=== PATIENT | male | born 1950 | race Caucasian/White ===

== ENCOUNTER → 2018-08-16 11:22 | Outpatient (CLI) | payer MEDICARE, OTHER, SELFPAY ==
[2018-08-16 11:44] LABS: Add Manual Diff / Slide Review NO; Basophils Percent Auto 0.6 % (0-2); Hematocrit 47.2 % (41-53); Hemoglobin 16.6 g/dL (13.5-17.5); Lymphocytes Percent Auto 23.2 % (25-40); Mean Corpuscular HGB Conc 35.1 % (30-36); Mean Corpuscular Hemoglobin 35.5 PG (26-34); Mean Corpuscular Volume 101.1 fL (80-100); Monocytes Percent Auto 10.3 % (3-14); Neutrophils Absolute Auto 5300 /uL (3000-5900); Neutrophils Percent Auto 63.9 % (50-75); Platelet Count 136 X10^3/uL (150-400); Red Blood Cell Count 4.67 X10^6/uL (4.5-5.9); Red Cell Distribution Width 14.2 % (11.6-14.8); White Blood Cell Count 8.3 X10^3/uL (4.5-11.0)
[2018-08-16 11:51] LABS: Hemoglobin A1C% w Est Avg Glu 5.4 % (4.0-6.0)
[2018-08-16 12:15] LABS: Alanine Aminotransferase 199 IU/L (21-72); Albumin 4.8 g/dL (3.5-5.0); Albumin Globulin Ratio 1.5 (1.0-2.8); Alkaline Phosphatase 67 U/L (38-126); Aspartate Aminotransferase 180 IU/L (17-59); Bilirubin Total 2.3 mg/dL (0.2-1.3); Blood Urea Nitrogen 12 mg/dL (9-20); Calcium 10.2 mg/dL (8.4-10.2); Carbon Dioxide 31 mmol/L (22-32); Chloride 99 mmol/L (98-107); Estimated Glomerular Filt Rate > 60.0 mL/min (>60); Globulin 3.3 g/dL (1.7-4.1); Glucose 132 mg/dL (80-110); HEMOLYSIS 21 (0-50); Potassium 3.8 mmol/L (3.4-5.1); Sodium 144 mmol/L (137-145); Total Protein 8.1 g/dL (6.3-8.2)
[2018-08-16 12:45] LABS: Thyroid Stimulating Hormone 1.76 uIU/mL (0.47-4.68)
== END ==
PROVIDERS: Family Provider Physician Assistant; PCP Physician Assistant; Visit Provider Family Medicine
DX: E11.9 Type 2 diabetes mellitus without complications (principal); I10 Essential (primary) hypertension; R42 Dizziness and giddiness; R55 Syncope and collapse
CPT/HCPCS: 80053; 81003; 83036; 84443; 85025

== ENCOUNTER → 2018-08-16 17:01 | Outpatient (CLI) | payer MEDICARE, OTHER, SELFPAY ==
[2018-08-16 17:34] LABS: Appearance Urine UA CLEAR; Bilirubin Urine UA NEGATIVE (NEGATIVE); Color Urine UA YELLOW; Glucose Urine UA NEGATIVE (Normal); Ketones Urine UA NEGATIVE (NEGATIVE); Leukocyte Esterase Urine UA NEGATIVE (NEGATIVE); Nitrite Urine UA Negative (Negative); Occult Blood Urine UA TRACE-LYSED (Negative); Protein Urine UA NEGATIVE (Negative); Specific Gravity Urine UA 1.015 (1.000-1.035); Urobilinogen Urine UA 0.2 E.U./dL (0.2)
== END ==
PROVIDERS: Family Medicine; Family Provider Physician Assistant; PCP Physician Assistant; Visit Provider Physician Assistant
DX: E11.9 Type 2 diabetes mellitus without complications (principal); I10 Essential (primary) hypertension; R42 Dizziness and giddiness; R55 Syncope and collapse
CPT/HCPCS: 81003

== ENCOUNTER 2018-08-18 13:17 | Emergency (ER) | payer MEDICARE, OTHER, SELFPAY ==
[2018-08-18 13:27] VITALS: BP 172/82; PULSE 70; RESP 14; O2SAT 97
[2018-08-18 13:32] VITALS: TEMP 36.9
--- NOTE | 2018-08-18 13:52 | ED.DIZZY ---
HPI - Dizziness <Jackelyn WorleyGLORIAP-BC - Last Filed: 08/18/18 17:36> General Chief Complaint: Dizziness Stated Complaint: NEEDS TO BE REHYDRATED Time Seen by Provider: 08/18/18 13:32 Source: patient Mode of arrival: ambulatory Limitations: no limitations History of Present Illness HPI Narrative: Patient presents with chief complaint of dizziness when he bends over. Described as lightheadedness. Patient denies spinning. Patient was seen by primary care provider on the for the same problem. Patient states primary care provider sent him to the emergency department to be rehydrated and have his electrolytes rebalanced. patient denies any your eye symptoms. Denies any ear pain or sore throat. Denies any congestion or coughing. Patient denies any shortness of breath, chest pain, abdominal pain. He denies any nausea vomiting or diarrhea. Patient states he has been drinking liters of Gatorade in an attempt to be rehydrated. States that he decreased his wine intake from 10 glasses a day down to approximately 2 glasses a day. Patient does state he has a history of heart failure from being dehydrated and chart review illustrate alcohol-related heart failure Chart review illustrate that his electrolytes that were done on the are grossly within normal limits. Patient was also noted to have taken himself off his blood pressure medications and other medications.. Patient states that his lightheadedness sensation is not spinning it only happens when he leans forward. Related Data Home Medications Medication Instructions Recorded Confirmed magnesium oxide 500 mg PO QDAY #0 11/28/16 03/27/18 [IBUPROFEN ] 400 mg PO PRN PRN #0 01/17/17 03/27/18 [LOPERAMIDE HCL] 2 - 4 mg PO PRN PRN #0 01/17/17 03/27/18 meclizine 25 mg PO PRN PRN #0 01/31/17 03/27/18 indomethacin 50 mg capsule 50 mg PO BID 03/27/18 03/27/18 Previous Rx's Medication Instructions Recorded albuterol sulfate [Ventolin HFA] 2 puff INH Q4-6HP PRN #1 ea 11/28/16 Glucose: Home Monitoring Kit kit #1 01/31/17 Glucose: Test Strips str QDAY #100 01/07/18 levothyroxine [Synthroid] 75 mcg PO QDAY #90 tab 01/07/18 metformin [Glucophage XR] 500 mg PO QDAY #90 tab 01/07/18 Lancets #1 ea 04/03/18 hydrochlorothiazide 25 mg tablet 25 mg PO QDAY #90 tab 04/10/18 metoprolol tartrate 50 mg tablet 25 - 50 mg PO BID #135 tab 04/10/18 acyclovir 400 mg PO BID #20 tab 05/27/18 Allergies Allergy/AdvReac Type Severity Reaction Status Date / Time acetaminophen [ACETAMINOPHEN] AdvReac Severe Has Verified 08/16/18 10:42 Elevated LFTs due ETOH Review of Systems <CELE PinedaUNIVERSITY OF [facility] - Last Filed: 08/18/18 17:36> Review of Systems GENERAL: Denies chills, fatigue, malaise, fever, sweats. HEENT: Denies sinus pain, ear pain, sore throat, difficulty swallowing, dizziness. RESPIRATORY: Denies dyspnea, cough, wheezing, hemoptysis, sputum. CARDIOVASCULAR: Denies chest pain, palpitations, orthopnea, edema, GASTROINTESTINAL: Denies nausea, vomiting, abdominal pain, diarrhea, constipation, melena. : Denies dysuria, frequency, incontinence, hematuria, urinary retention. MUSCULOSKELETAL: denies weakness, joint pain, or bony pain SKIN: Denies rash, skin lesions, or other NEUROLOGIC: See HPI PSYCHIATRIC: No concerning psychosocial issues. 12 point review of systems is negative except for those stated above Exam <GLORIA PinedaARBOR HEALTH - Last Filed: 08/18/18 17:36> Narrative Exam Narrative: GENERAL: This is a well-nourished, well-developed patient, in no acute distress. HEAD: Atraumatic. Normocephalic. No temporal or scalp tenderness. EYES: Pupils equal round and reactive. Extraocular motions intact. No scleral icterus. No injection or drainage. ENT: Nose without bleeding, purulent drainage or septal hematoma. Throat without erythema, tonsillar hypertrophy or exudate. Uvula midline. Airway patent. NECK: Trachea midline. No JVD or lymphadenopathy. Supple, nontender, no meningeal signs. CARDIOVASCULAR: Regular rate and rhythm without murmurs, gallops, or rubs. RESPIRATORY: Clear to auscultation. Breath sounds equal bilaterally. No wheezes, rales, or rhonchi. No increased respiratory effort. No retractions. No accessory muscle use. No cough on exam. GASTROINTESTINAL: Abdomen soft, non-tender, nondistended. No hepato-splenomegaly, or palpable masses. No guarding. EXTREMITIES: No clubbing, cyanosis, or edema. No joint tenderness, effusion, or edema noted. BACK: Nontender without deformity or crepitance. No flank tenderness. NEURO: AOx3. No slurred speech. Stable gait. Pupils equal round and reactive. strength is equal upper and lower extremities bilaterally. SKIN: No rash or erythema. Initial Vital Signs Initial Vital Signs: Vital Signs Pulse Rate 70 08/18/18 13:27 Respiratory Rate 14 08/18/18 13:27 Blood Pressure 172/82 H 08/18/18 13:27 Pulse Oximetry 97 08/18/18 13:27 <Nicole Flanagan DO - Last Filed: 08/19/18 07:55> Initial Vital Signs Initial Vital Signs: Vital Signs Pulse Rate 70 08/18/18 13:27 Respiratory Rate 14 08/18/18 13:27 Blood Pressure 172/82 H 08/18/18 13:27 Pulse Oximetry 97 08/18/18 13:27 Course <CELE Pineda-BC - Last Filed: 08/18/18 17:36> Additional Information: I checked on the patient several times throughout His stay in the emergency department. Orders Ordered: Discontinued Medications Sodium Chloride (Normal Saline 0.9%) 1,000 mls @ 1,000 mls/hr IV BOLUS ONE Stop: 08/18/18 14:53 Last Infusion: 08/18/18 16:00 Dose: 0 mls/hr Admin: 08/18/18 14:20 Dose: 1,000 mls/hr Vital Signs - 8 hr 08/18/18 13:27 08/18/18 13:32 08/18/18 14:41 Temperature 98.4 F Pulse Rate 70 54 L Pulse Rate [Orthostatic Lying] Pulse Rate [Orthostatic Sitting] Pulse Rate [Orthostatic Standing] Respiratory Rate 14 15 Blood Pressure 172/82 H Blood Pressure [Orthostatic Lying] Blood Pressure [Orthostatic Sitting] Blood Pressure [Orthostatic Standing] Blood Pressure [Right Arm] 128/58 L Pulse Oximetry 97 99 08/18/18 15:32 08/18/18 16:48 Temperature Pulse Rate 61 Pulse Rate [Orthostatic Lying] 70 Pulse Rate [Orthostatic Sitting] 74 Pulse Rate [Orthostatic Standing] 74 Respiratory Rate 15 Blood Pressure Blood Pressure [Orthostatic Lying] 155/76 H Blood Pressure [Orthostatic Sitting] 151/68 H Blood Pressure [Orthostatic Standing] 158/76 H Blood Pressure [Right Arm] 132/61 Pulse Oximetry 100 <Nicole Flanagan DO - Last Filed: 08/19/18 07:55> Orders Ordered: Discontinued Medications Sodium Chloride (Normal Saline 0.9%) 1,000 mls @ 1,000 mls/hr IV BOLUS ONE Stop: 08/18/18 14:53 Last Infusion: 08/18/18 16:00 Dose: 0 mls/hr Admin: 08/18/18 14:20 Dose: 1,000 mls/hr Vital Signs - 8 hr 08/18/18 13:27 08/18/18 13:32 08/18/18 14:41 Temperature 98.4 F Pulse Rate 70 54 L Pulse Rate [Orthostatic Lying] Pulse Rate [Orthostatic Sitting] Pulse Rate [Orthostatic Standing] Respiratory Rate 14 15 Blood Pressure 172/82 H Blood Pressure [Orthostatic Lying] Blood Pressure [Orthostatic Sitting] Blood Pressure [Orthostatic Standing] Blood Pressure [Right Arm] 128/58 L Pulse Oximetry 97 99 08/18/18 15:32 08/18/18 16:48 Temperature Pulse Rate 61 Pulse Rate [Orthostatic Lying] 70 Pulse Rate [Orthostatic Sitting] 74 Pulse Rate [Orthostatic Standing] 74 Respiratory Rate 15 Blood Pressure Blood Pressure [Orthostatic Lying] 155/76 H Blood Pressure [Orthostatic Sitting] 151/68 H Blood Pressure [Orthostatic Standing] 158/76 H Blood Pressure [Right Arm] 132/61 Pulse Oximetry 100 MDM - Dizziness <CELE Pineda- - Last Filed: 08/18/18 17:36> Lab Data Result diagrams: 08/18/18 14:10 08/18/18 14:10 Lab Results 08/18/18 08/18/18 08/18/18 Range/Units 14:10 14:10 14:10 WBC 7.8 (4.5-11.0) X10^3/uL RBC 4.54 (4.5-5.9) X10^6/uL Hgb 16.3 (13.5-17.5) g/dL Hct 46.7 (41-53) % MCV 102.8 H (80-100) fL MCH 36.0 H (26-34) PG MCHC 35.0 (30-36) % RDW 14.3 (11.6-14.8) % Plt Count 140 L (150-400) X10^3/uL Neut % (Auto) 61.7 (50-75) % Lymph % (Auto) 26.3 (25-40) % [place] % (Auto) 10.2 (3-14) % Eos % (Auto) 1.6 L (2-4) % Baso % (Auto) 0.2 (0-2) % Neut # (Auto) 4800 (3614-8253) /uL Sodium 142 (137-145) mmol/L Potassium 3.9 (3.4-5.1) mmol/L Chloride 100 (98-107) mmol/L Carbon Dioxide 31 (22-32) mmol/L BUN 12 (9-20) mg/dL Creatinine 0.60 L (0.66-1.25) mg/dL Estimated GFR > 60.0 (>60) mL/min BUN/Creatinine Ratio 20.0 (6-22) Glucose 111 H (80-110) mg/dL Calcium 9.8 (8.4-10.2) mg/dL Magnesium 1.6 (1.6-2.3) mg/dL Total Bilirubin 1.7 H (0.2-1.3) mg/dL AST 135 H (17-59) IU/L ALT 167 H (21-72) IU/L Alkaline Phosphatase 66 (38-126) U/L Total Creatine Kinase 54 L (55-170) U/L CK-MB (CK-2) TNP CK-MB (CK-2) Rel Index TNP Troponin I < 0.012 (0.01-0.034) ng/mL Total Protein 7.8 (6.3-8.2) g/dL Albumin 4.5 (3.5-5.0) g/dL Globulin 3.3 (1.7-4.1) g/dL Albumin/Globulin Ratio 1.4 (1.0-2.8) Urine Color Urine Appearance Urine pH (4.5-8.0) Ur Specific [employer] (1.000-1.035) Urine Protein (Negative) Urine Glucose (UA) (Normal) g/dL Urine Ketones (NEGATIVE) Urine Occult Blood (Negative) Urine Nitrate (Negative) Urine Bilirubin (NEGATIVE) Urine Urobilinogen (0.2) E.U./dL Ur Leukocyte Esterase (NEGATIVE) Urine RBC (0-5/HPF) Urine WBC (0-5/HPF) Urine Bacteria (None) Ur Culture Indicated? Micro UA Comment 08/18/18 Range/Units 16:25 WBC (4.5-11.0) X10^3/uL RBC (4.5-5.9) X10^6/uL Hgb (13.5-17.5) g/dL Hct (41-53) % MCV (80-100) fL MCH (26-34) PG MCHC (30-36) % RDW (11.6-14.8) % Plt Count (150-400) X10^3/uL Neut % (Auto) (50-75) % Lymph % (Auto) (25-40) % [place] % (Auto) (3-14) % Eos % (Auto) (2-4) % Baso % (Auto) (0-2) % Neut # (Auto) (5724-6191) /uL Sodium (137-145) mmol/L Potassium (3.4-5.1) mmol/L Chloride (98-107) mmol/L Carbon Dioxide (22-32) mmol/L BUN (9-20) mg/dL Creatinine (0.66-1.25) mg/dL Estimated GFR (>60) mL/min BUN/Creatinine Ratio (6-22) Glucose (80-110) mg/dL Calcium (8.4-10.2) mg/dL Magnesium (1.6-2.3) mg/dL Total Bilirubin (0.2-1.3) mg/dL AST (17-59) IU/L ALT (21-72) IU/L Alkaline Phosphatase (38-126) U/L Total Creatine Kinase (55-170) U/L CK-MB (CK-2) CK-MB (CK-2) Rel Index Troponin I (0.01-0.034) ng/mL Total Protein (6.3-8.2) g/dL Albumin (3.5-5.0) g/dL Globulin (1.7-4.1) g/dL Albumin/Globulin Ratio (1.0-2.8) Urine Color Yellow Urine Appearance Clear Urine pH 6.5 (4.5-8.0) Ur Specific [employer] <=1.005 (1.000-1.035) Urine Protein Negative (Negative) Urine Glucose (UA) Negative (Normal) g/dL Urine Ketones Negative (NEGATIVE) Urine Occult Blood Negative (Negative) Urine Nitrate Negative (Negative) Urine Bilirubin Negative (NEGATIVE) Urine Urobilinogen 0.2 (0.2) E.U./dL Ur Leukocyte Esterase Negative (NEGATIVE) Urine RBC None seen (0-5/HPF) Urine WBC None seen (0-5/HPF) Urine Bacteria None seen (None) Ur Culture Indicated? Cult not indicated Micro UA Comment Microscopic normal Imaging Data CT scan - head: Radiologist's impression: [address] [address] [address] Scan Report Signed Patient: Shaun Ceja R#: [id number] : 1950Acct:[id number] Age/Sex: 67 / MDate of Service: 08/18/18 Loc: ED Accession Number: [id number] Procedure: CT head/brain wo con Ordering Provider: Jackelyn Worley PROCEDURE: CT HEAD/BRAIN WO CON INDICATIONS: lightheadedness TECHNIQUE: Noncontrast 4.5 mm thick angled axial sections acquired from the foramen magnum to the vertex, with coronal and sagittal reformats. For radiation dose reduction, the following was used: automated exposure control, adjustment of mA and/or kV according to patient size. COMPARISON: None. FINDINGS: Image quality: Excellent. CSF spaces: Basal cisterns are patent. No extra-axial fluid collections. The ventricles are symmetric in size and shape. Brain: No intracranial bleeds or masses. There is cerebral volume loss for age, with resultant ventricular and sulcal prominence. There are periventricular and deep white matter chronic small vessel ischemic changes. There is intracranial internal carotid artery atherosclerosis. Skull and face: Calvarium and visualized facial bones appear intact, without suspicious lesions. Sinuses: Visualized sinuses and mastoids are clear. IMPRESSION: 1. No acute intracranial process. 2. Mild atrophy and chronic microvascular ischemic changes. Dictated by: Serenity Hernández M.D. on 08/18/2018 at 15:07 Approved by: Serenity Hernández M.D. on 08/18/2018 at 15:07 ECG Data Attestation: I personally reviewed and interpreted this ECG as follows: Interpretation: Sinus rhythm. Ventricular rate 60. No ectopy noted. No ST elevation or depression. MDM Narrative Medical decision making narrative: Patient presented for chief complaint of lightheadedness when leaning forward. He had just seen his primary care provider for this on August 16 and it is unclear why he came to the emergency department today other than lack of improvement. The patient insisted that his electrolytes were off, though his lab work came back grossly benign. He was given 1 L of IVF in the emergency department and had normal orthostatic vital signs. A CBC, CMP and cardiac enzymes were completed. He had a negative head CT. His EKG sinus rhythm. The patient ambulated steadily to check out. I encouraged him to follow up with primary care provider especially given how much he states he has decreased his alcohol consumption. Discussed return precautions For acute concerns including heart attack or stroke and patient had no questions or concerns upon discharge. <Nicole Flanagan, DO - Last Filed: 08/19/18 07:55> Lab Data Lab Results 08/18/18 08/18/18 08/18/18 Range/Units 14:10 14:10 14:10 WBC 7.8 (4.5-11.0) X10^3/uL RBC 4.54 (4.5-5.9) X10^6/uL Hgb 16.3 (13.5-17.5) g/dL Hct 46.7 (41-53) % MCV 102.8 H (80-100) fL MCH 36.0 H (26-34) PG MCHC 35.0 (30-36) % RDW 14.3 (11.6-14.8) % Plt Count 140 L (150-400) X10^3/uL Neut % (Auto) 61.7 (50-75) % Lymph % (Auto) 26.3 (25-40) % [place] % (Auto) 10.2 (3-14) % Eos % (Auto) 1.6 L (2-4) % Baso % (Auto) 0.2 (0-2) % Neut # (Auto) 4800 (4183-7542) /uL Sodium 142 (137-145) mmol/L Potassium 3.9 (3.4-5.1) mmol/L Chloride 100 (98-107) mmol/L Carbon Dioxide 31 (22-32) mmol/L BUN 12 (9-20) mg/dL Creatinine 0.60 L (0.66-1.25) mg/dL Estimated GFR > 60.0 (>60) mL/min BUN/Creatinine Ratio 20.0 (6-22) Glucose 111 H (80-110) mg/dL Calcium 9.8 (8.4-10.2) mg/dL Magnesium 1.6 (1.6-2.3) mg/dL Total Bilirubin 1.7 H (0.2-1.3) mg/dL AST 135 H (17-59) IU/L ALT 167 H (21-72) IU/L Alkaline Phosphatase 66 (38-126) U/L Total Creatine Kinase 54 L (55-170) U/L CK-MB (CK-2) TNP CK-MB (CK-2) Rel Index TNP Troponin I < 0.012 (0.01-0.034) ng/mL Total Protein 7.8 (6.3-8.2) g/dL Albumin 4.5 (3.5-5.0) g/dL Globulin 3.3 (1.7-4.1) g/dL Albumin/Globulin Ratio 1.4 (1.0-2.8) Urine Color Urine Appearance Urine pH (4.5-8.0) Ur Specific [employer] (1.000-1.035) Urine Protein (Negative) Urine Glucose (UA) (Normal) g/dL Urine Ketones (NEGATIVE) Urine Occult Blood (Negative) Urine Nitrate (Negative) Urine Bilirubin (NEGATIVE) Urine Urobilinogen (0.2) E.U./dL Ur Leukocyte Esterase (NEGATIVE) Urine RBC (0-5/HPF) Urine WBC (0-5/HPF) Urine Bacteria (None) Ur Culture Indicated? Micro UA Comment 08/18/18 Range/Units 16:25 WBC (4.5-11.0) X10^3/uL RBC (4.5-5.9) X10^6/uL Hgb (13.5-17.5) g/dL Hct (41-53) % MCV (80-100) fL MCH (26-34) PG MCHC (30-36) % RDW (11.6-14.8) % Plt Count (150-400) X10^3/uL Neut % (Auto) (50-75) % Lymph % (Auto) (25-40) % [place] % (Auto) (3-14) % Eos % (Auto) (2-4) % Baso % (Auto) (0-2) % Neut # (Auto) (0756-6509) /uL Sodium (137-145) mmol/L Potassium (3.4-5.1) mmol/L Chloride (98-107) mmol/L Carbon Dioxide (22-32) mmol/L BUN (9-20) mg/dL Creatinine (0.66-1.25) mg/dL Estimated GFR (>60) mL/min BUN/Creatinine Ratio (6-22) Glucose (80-110) mg/dL Calcium (8.4-10.2) mg/dL Magnesium (1.6-2.3) mg/dL Total Bilirubin (0.2-1.3) mg/dL AST (17-59) IU/L ALT (21-72) IU/L Alkaline Phosphatase (38-126) U/L Total Creatine Kinase (55-170) U/L CK-MB (CK-2) CK-MB (CK-2) Rel Index Troponin I (0.01-0.034) ng/mL Total Protein (6.3-8.2) g/dL Albumin (3.5-5.0) g/dL Globulin (1.7-4.1) g/dL Albumin/Globulin Ratio (1.0-2.8) Urine Color Yellow Urine Appearance Clear Urine pH 6.5 (4.5-8.0) Ur Specific [employer] <=1.005 (1.000-1.035) Urine Protein Negative (Negative) Urine Glucose (UA) Negative (Normal) g/dL Urine Ketones Negative (NEGATIVE) Urine Occult Blood Negative (Negative) Urine Nitrate Negative (Negative) Urine Bilirubin Negative (NEGATIVE) Urine Urobilinogen 0.2 (0.2) E.U./dL Ur Leukocyte Esterase Negative (NEGATIVE) Urine RBC None seen (0-5/HPF) Urine WBC None seen (0-5/HPF) Urine Bacteria None seen (None) Ur Culture Indicated? Cult not indicated Micro UA Comment Microscopic normal Discharge Plan Departure Patient Disposition: Home Clinical Impression: Light-headed feeling, Elevated liver enzymes, Alcohol abuse Discharge Date/Time: 08/18/18 17:39 Interventions: ED Discharge Assessment Last Done: 08/18/18 17:37 Instructions: DI for Alcohol Abuse, DI for Dizziness-Nonvertigo Activity Restrictions/Additional Instructions: Your lab work came back normal today. Your vital signs have been stable throughout her stay in the emergency department. Your urine came back normal and your EKG and head CT were normal as well. Please push fluids and follow up with primary care provider. Please come back to emergency department for any acute concerns of stroke heart attack or urgent matters. Prescriptions: No Action indomethacin 50 mg capsule 50 mg PO BID RF: 0 magnesium oxide 500 MG tablet 500 mg PO QDAY Qty: 0 RF: 0 albuterol sulfate [Ventolin HFA] 90 MCG/PUFF HFA aerosol inhaler 2 puff INH Q4-6HP PRNQty: 1 RF: 0 [LOPERAMIDE HCL] 2 - 4 mg PO PRN PRNQty: 0 RF: 0 [IBUPROFEN ] 400 mg PO PRN PRNQty: 0 RF: 0 meclizine 25 MG tablet 25 mg PO PRN PRNQty: 0 RF: 0 Glucose: Home Monitoring Kit Qty: 1 RF: 0 levothyroxine [Synthroid] 75 MCG tablet 75 mcg PO QDAY Qty: 90 RF: 3 metformin [Glucophage XR] 500 MG tablet extended release 24 hr 500 mg PO QDAY Qty: 90 RF: 3 Glucose: Test Strips QDAY Qty: 100 RF: 6 Lancets .Route .MEDSUPPLY Qty: 1 RF: 3 metoprolol tartrate 50 mg tablet 25 - 50 mg PO BID Qty: 135 RF: 0 hydrochlorothiazide 25 mg tablet 25 mg PO QDAY Qty: 90 RF: 0 acyclovir 400 mg tablet 400 mg PO BID Qty: 20 RF: 6 Referrals: Valerie Shi PA-C [Primary Care Provider] - <Nicole Flanagan DO - Last Filed: 08/19/18 07:55> [facility] Attestation: I was immediately available in the department for consultation. Documentation has been reviewed. I agree with assessment and plan.
--- NOTE | 2018-08-18 14:15 | ED_ITS ---
HPI - Dizziness <Jackelyn WorleyGLORIAP-BC - Last Filed: 08/18/18 17:36> General Chief Complaint: Dizziness Stated Complaint: NEEDS TO BE REHYDRATED Time Seen by Provider: 08/18/18 13:32 Source: patient Mode of arrival: ambulatory Limitations: no limitations History of Present Illness HPI Narrative: Patient presents with chief complaint of dizziness when he bends over. Described as lightheadedness. Patient denies spinning. Patient was seen by primary care provider on the for the same problem. Patient states primary care provider sent him to the emergency department to be rehydrated and have his electrolytes rebalanced. patient denies any your eye symptoms. Denies any ear pain or sore throat. Denies any congestion or coughing. Patient denies any shortness of breath, chest pain, abdominal pain. He denies any nausea vomiting or diarrhea. Patient states he has been drinking liters of Gatorade in an attempt to be rehydrated. States that he decreased his wine intake from 10 glasses a day down to approximately 2 glasses a day. Patient does state he has a history of heart failure from being dehydrated and chart review illustrate alcohol-related heart failure Chart review illustrate that his electrolytes that were done on the are grossly within normal limits. Patient was also noted to have taken himself off his blood pressure medications and other medications.. Patient states that his lightheadedness sensation is not spinning it only happens when he leans forward. Related Data Home Medications Medication Instructions Recorded Confirmed magnesium oxide 500 mg PO QDAY #0 11/28/16 03/27/18 [IBUPROFEN ] 400 mg PO PRN PRN #0 01/17/17 03/27/18 [LOPERAMIDE HCL] 2 - 4 mg PO PRN PRN #0 01/17/17 03/27/18 meclizine 25 mg PO PRN PRN #0 01/31/17 03/27/18 indomethacin 50 mg capsule 50 mg PO BID 03/27/18 03/27/18 Previous Rx's Medication Instructions Recorded albuterol sulfate [Ventolin HFA] 2 puff INH Q4-6HP PRN #1 ea 11/28/16 Glucose: Home Monitoring Kit kit #1 01/31/17 Glucose: Test Strips str QDAY #100 01/07/18 levothyroxine [Synthroid] 75 mcg PO QDAY #90 tab 01/07/18 metformin [Glucophage XR] 500 mg PO QDAY #90 tab 01/07/18 Lancets #1 ea 04/03/18 hydrochlorothiazide 25 mg tablet 25 mg PO QDAY #90 tab 04/10/18 metoprolol tartrate 50 mg tablet 25 - 50 mg PO BID #135 tab 04/10/18 acyclovir 400 mg PO BID #20 tab 05/27/18 Allergies Allergy/AdvReac Type Severity Reaction Status Date / Time acetaminophen [ACETAMINOPHEN] AdvReac Severe Has Verified 08/16/18 10:42 Elevated LFTs due ETOH Review of Systems <CELE PinedaW. D. [facility] - Last Filed: 08/18/18 17:36> Review of Systems GENERAL: Denies chills, fatigue, malaise, fever, sweats. HEENT: Denies sinus pain, ear pain, sore throat, difficulty swallowing, dizziness. RESPIRATORY: Denies dyspnea, cough, wheezing, hemoptysis, sputum. CARDIOVASCULAR: Denies chest pain, palpitations, orthopnea, edema, GASTROINTESTINAL: Denies nausea, vomiting, abdominal pain, diarrhea, constipation, melena. : Denies dysuria, frequency, incontinence, hematuria, urinary retention. MUSCULOSKELETAL: denies weakness, joint pain, or bony pain SKIN: Denies rash, skin lesions, or other NEUROLOGIC: See HPI PSYCHIATRIC: No concerning psychosocial issues. 12 point review of systems is negative except for those stated above Exam <GL[facility]PROVID[facility] - Last Filed: 08/18/18 17:36> Narrative Exam Narrative: GENERAL: This is a well-nourished, well-developed patient, in no acute distress. HEAD: Atraumatic. Normocephalic. No temporal or scalp tenderness. EYES: Pupils equal round and reactive. Extraocular motions intact. No scleral icterus. No injection or drainage. ENT: Nose without bleeding, purulent drainage or septal hematoma. Throat without erythema, tonsillar hypertrophy or exudate. Uvula midline. Airway patent. NECK: Trachea midline. No JVD or lymphadenopathy. Supple, nontender, no meningeal signs. CARDIOVASCULAR: Regular rate and rhythm without murmurs, gallops, or rubs. RESPIRATORY: Clear to auscultation. Breath sounds equal bilaterally. No wheezes , rales, or rhonchi. No increased respiratory effort. No retractions. No accessory muscle use. No cough on exam. GASTROINTESTINAL: Abdomen soft, non-tender, nondistended. No hepato-splenomegaly , or palpable masses. No guarding. EXTREMITIES: No clubbing, cyanosis, or edema. No joint tenderness, effusion, or edema noted. BACK: Nontender without deformity or crepitance. No flank tenderness. NEURO: AOx3. No slurred speech. Stable gait. Pupils equal round and reactive. strength is equal upper and lower extremities bilaterally. SKIN: No rash or erythema. Initial Vital Signs Initial Vital Signs: Vital Signs Pulse Rate 70 08/18/18 13:27 Respiratory Rate 14 08/18/18 13:27 Blood Pressure 172/82 H 08/18/18 13:27 Pulse Oximetry 97 08/18/18 13:27 <Nicole Flanagan DO - Last Filed: 08/19/18 07:55> Initial Vital Signs Initial Vital Signs: Vital Signs Pulse Rate 70 08/18/18 13:27 Respiratory Rate 14 08/18/18 13:27 Blood Pressure 172/82 H 08/18/18 13:27 Pulse Oximetry 97 08/18/18 13:27 Course <CELE Pineda-BC - Last Filed: 08/18/18 17:36> Additional Information: I checked on the patient several times throughout His stay in the emergency department. Orders Ordered: Discontinued Medications Sodium Chloride (Normal Saline 0.9%) 1,000 mls @ 1,000 mls/hr IV BOLUS ONE Stop: 08/18/18 14:53 Last Infusion: 08/18/18 16:00 Dose: 0 mls/hr Admin: 08/18/18 14:20 Dose: 1,000 mls/hr Vital Signs - 8 hr 08/18/18 13:27 08/18/18 13:32 08/18/18 14:41 Temperature 98.4 F Pulse Rate 70 54 L Pulse Rate [Orthostatic Lying] Pulse Rate [Orthostatic Sitting] Pulse Rate [Orthostatic Standing] Respiratory Rate 14 15 Blood Pressure 172/82 H Blood Pressure [Orthostatic Lying] Blood Pressure [Orthostatic Sitting] Blood Pressure [Orthostatic Standing] Blood Pressure [Right Arm] 128/58 L Pulse Oximetry 97 99 08/18/18 15:32 08/18/18 16:48 Temperature Pulse Rate 61 Pulse Rate [Orthostatic Lying] 70 Pulse Rate [Orthostatic Sitting] 74 Pulse Rate [Orthostatic Standing] 74 Respiratory Rate 15 Blood Pressure Blood Pressure [Orthostatic Lying] 155/76 H Blood Pressure [Orthostatic Sitting] 151/68 H Blood Pressure [Orthostatic Standing] 158/76 H Blood Pressure [Right Arm] 132/61 Pulse Oximetry 100 <Nicole Flanagan DO - Last Filed: 08/19/18 07:55> Orders Ordered: Discontinued Medications Sodium Chloride (Normal Saline 0.9%) 1,000 mls @ 1,000 mls/hr IV BOLUS ONE Stop: 08/18/18 14:53 Last Infusion: 08/18/18 16:00 Dose: 0 mls/hr Admin: 08/18/18 14:20 Dose: 1,000 mls/hr Vital Signs - 8 hr 08/18/18 13:27 08/18/18 13:32 08/18/18 14:41 Temperature 98.4 F Pulse Rate 70 54 L Pulse Rate [Orthostatic Lying] Pulse Rate [Orthostatic Sitting] Pulse Rate [Orthostatic Standing] Respiratory Rate 14 15 Blood Pressure 172/82 H Blood Pressure [Orthostatic Lying] Blood Pressure [Orthostatic Sitting] Blood Pressure [Orthostatic Standing] Blood Pressure [Right Arm] 128/58 L Pulse Oximetry 97 99 08/18/18 15:32 08/18/18 16:48 Temperature Pulse Rate 61 Pulse Rate [Orthostatic Lying] 70 Pulse Rate [Orthostatic Sitting] 74 Pulse Rate [Orthostatic Standing] 74 Respiratory Rate 15 Blood Pressure Blood Pressure [Orthostatic Lying] 155/76 H Blood Pressure [Orthostatic Sitting] 151/68 H Blood Pressure [Orthostatic Standing] 158/76 H Blood Pressure [Right Arm] 132/61 Pulse Oximetry 100 MDM - Dizziness <CELE Pineda- - Last Filed: 08/18/18 17:36> Lab Data Result diagrams: 08/18/18 14:10 08/18/18 14:10 Lab Results 08/18/18 08/18/18 08/18/18 Range/Units 14:10 14:10 14:10 WBC 7.8 (4.5-11.0) X10^3/uL RBC 4.54 (4.5-5.9) X10^6/uL Hgb 16.3 (13.5-17.5) g/dL Hct 46.7 (41-53) % MCV 102.8 H (80-100) fL MCH 36.0 H (26-34) PG MCHC 35.0 (30-36) % RDW 14.3 (11.6-14.8) % Plt Count 140 L (150-400) X10^3/uL Neut % (Auto) 61.7 (50-75) % Lymph % (Auto) 26.3 (25-40) % Glenn % (Auto) 10.2 (3-14) % Eos % (Auto) 1.6 L (2-4) % Baso % (Auto) 0.2 (0-2) % Neut # (Auto) 4800 (8167-9361) /uL Sodium 142 (137-145) mmol/L Potassium 3.9 (3.4-5.1) mmol/L Chloride 100 (98-107) mmol/L Carbon Dioxide 31 (22-32) mmol/L BUN 12 (9-20) mg/dL Creatinine 0.60 L (0.66-1.25) mg/dL Estimated GFR > 60.0 (>60) mL/min BUN/Creatinine Ratio 20.0 (6-22) Glucose 111 H (80-110) mg/dL Calcium 9.8 (8.4-10.2) mg/dL Magnesium 1.6 (1.6-2.3) mg/dL Total Bilirubin 1.7 H (0.2-1.3) mg/dL AST 135 H (17-59) IU/L ALT 167 H (21-72) IU/L Alkaline Phosphatase 66 (38-126) U/L Total Creatine Kinase 54 L (55-170) U/L CK-MB (CK-2) TNP CK-MB (CK-2) Rel Index TNP Troponin I < 0.012 (0.01-0.034) ng/mL Total Protein 7.8 (6.3-8.2) g/dL Albumin 4.5 (3.5-5.0) g/dL Globulin 3.3 (1.7-4.1) g/dL Albumin/Globulin Ratio 1.4 (1.0-2.8) Urine Color Urine Appearance Urine pH (4.5-8.0) Ur Specific Beebe (1.000-1.035) Urine Protein (Negative) Urine Glucose (UA) (Normal) g/dL Urine Ketones (NEGATIVE) Urine Occult Blood (Negative) Urine Nitrate (Negative) Urine Bilirubin (NEGATIVE) Urine Urobilinogen (0.2) E.U./dL Ur Leukocyte Esterase (NEGATIVE) Urine RBC (0-5/HPF) Urine WBC (0-5/HPF) Urine Bacteria (None) Ur Culture Indicated? Micro UA Comment 08/18/18 Range/Units 16:25 WBC (4.5-11.0) X10^3/uL RBC (4.5-5.9) X10^6/uL Hgb (13.5-17.5) g/dL Hct (41-53) % MCV (80-100) fL MCH (26-34) PG MCHC (30-36) % RDW (11.6-14.8) % Plt Count (150-400) X10^3/uL Neut % (Auto) (50-75) % Lymph % (Auto) (25-40) % Glenn % (Auto) (3-14) % Eos % (Auto) (2-4) % Baso % (Auto) (0-2) % Neut # (Auto) (7270-2875) /uL Sodium (137-145) mmol/L Potassium (3.4-5.1) mmol/L Chloride (98-107) mmol/L Carbon Dioxide (22-32) mmol/L BUN (9-20) mg/dL Creatinine (0.66-1.25) mg/dL Estimated GFR (>60) mL/min BUN/Creatinine Ratio (6-22) Glucose (80-110) mg/dL Calcium (8.4-10.2) mg/dL Magnesium (1.6-2.3) mg/dL Total Bilirubin (0.2-1.3) mg/dL AST (17-59) IU/L ALT (21-72) IU/L Alkaline Phosphatase (38-126) U/L Total Creatine Kinase (55-170) U/L CK-MB (CK-2) CK-MB (CK-2) Rel Index Troponin I (0.01-0.034) ng/mL Total Protein (6.3-8.2) g/dL Albumin (3.5-5.0) g/dL Globulin (1.7-4.1) g/dL Albumin/Globulin Ratio (1.0-2.8) Urine Color Yellow Urine Appearance Clear Urine pH 6.5 (4.5-8.0) Ur Specific Beebe <=1.005 (1.000-1.035) Urine Protein Negative (Negative) Urine Glucose (UA) Negative (Normal) g/dL Urine Ketones Negative (NEGATIVE) Urine Occult Blood Negative (Negative) Urine Nitrate Negative (Negative) Urine Bilirubin Negative (NEGATIVE) Urine Urobilinogen 0.2 (0.2) E.U./dL Ur Leukocyte Esterase Negative (NEGATIVE) Urine RBC None seen (0-5/HPF) Urine WBC None seen (0-5/HPF) Urine Bacteria None seen (None) Ur Culture Indicated? Cult not indicated Micro UA Comment Microscopic normal Imaging Data CT scan - head: Radiologist's impression: [address] [address] [address] Scan Report Signed Patient: Shaun Ceja R#: [id number] : 1950Acct:[id number] Age/Sex: 67 / MDate of Service: 08/18/18 Loc: ED Accession Number: [id number] Procedure: CT head/brain wo con Ordering Provider: Jackelyn Worley PROCEDURE: CT HEAD/BRAIN WO CON INDICATIONS: lightheadedness TECHNIQUE: Noncontrast 4.5 mm thick angled axial sections acquired from the foramen magnum to the vertex, with coronal and sagittal reformats. For radiation dose reduction, the following was used: automated exposure control, adjustment of mA and/or kV according to patient size. COMPARISON: None. FINDINGS: Image quality: Excellent. CSF spaces: Basal cisterns are patent. No extra-axial fluid collections. The ventricles are symmetric in size and shape. Brain: No intracranial bleeds or masses. There is cerebral volume loss for age , with resultant ventricular and sulcal prominence. There are periventricular and deep white matter chronic small vessel ischemic changes. There is intracranial internal carotid artery atherosclerosis. Skull and face: Calvarium and visualized facial bones appear intact, without suspicious lesions. Sinuses: Visualized sinuses and mastoids are clear. IMPRESSION: 1. No acute intracranial process. 2. Mild atrophy and chronic microvascular ischemic changes. Dictated by: Serenity Hernández M.D. on 08/18/2018 at 15:07 Approved by: Serenity Hernández M.D. on 08/18/2018 at 15:07 ECG Data Attestation: I personally reviewed and interpreted this ECG as follows: Interpretation: Sinus rhythm. Ventricular rate 60. No ectopy noted. No ST elevation or depression. MDM Narrative Medical decision making narrative: Patient presented for chief complaint of lightheadedness when leaning forward. He had just seen his primary care provider for this on August 16 and it is unclear why he came to the emergency department today other than lack of improvement. The patient insisted that his electrolytes were off, though his lab work came back grossly benign. He was given 1 L of IVF in the emergency department and had normal orthostatic vital signs. A CBC, CMP and cardiac enzymes were completed. He had a negative head CT. His EKG sinus rhythm. The patient ambulated steadily to check out. I encouraged him to follow up with primary care provider especially given how much he states he has decreased his alcohol consumption. Discussed return precautions For acute concerns including heart attack or stroke and patient had no questions or concerns upon discharge. <Nicole Flanagan, DO - Last Filed: 08/19/18 07:55> Lab Data Lab Results 08/18/18 08/18/18 08/18/18 Range/Units 14:10 14:10 14:10 WBC 7.8 (4.5-11.0) X10^3/uL RBC 4.54 (4.5-5.9) X10^6/uL Hgb 16.3 (13.5-17.5) g/dL Hct 46.7 (41-53) % MCV 102.8 H (80-100) fL MCH 36.0 H (26-34) PG MCHC 35.0 (30-36) % RDW 14.3 (11.6-14.8) % Plt Count 140 L (150-400) X10^3/uL Neut % (Auto) 61.7 (50-75) % Lymph % (Auto) 26.3 (25-40) % Glenn % (Auto) 10.2 (3-14) % Eos % (Auto) 1.6 L (2-4) % Baso % (Auto) 0.2 (0-2) % Neut # (Auto) 4800 (9696-5608) /uL Sodium 142 (137-145) mmol/L Potassium 3.9 (3.4-5.1) mmol/L Chloride 100 (98-107) mmol/L Carbon Dioxide 31 (22-32) mmol/L BUN 12 (9-20) mg/dL Creatinine 0.60 L (0.66-1.25) mg/dL Estimated GFR > 60.0 (>60) mL/min BUN/Creatinine Ratio 20.0 (6-22) Glucose 111 H (80-110) mg/dL Calcium 9.8 (8.4-10.2) mg/dL Magnesium 1.6 (1.6-2.3) mg/dL Total Bilirubin 1.7 H (0.2-1.3) mg/dL AST 135 H (17-59) IU/L ALT 167 H (21-72) IU/L Alkaline Phosphatase 66 (38-126) U/L Total Creatine Kinase 54 L (55-170) U/L CK-MB (CK-2) TNP CK-MB (CK-2) Rel Index TNP Troponin I < 0.012 (0.01-0.034) ng/mL Total Protein 7.8 (6.3-8.2) g/dL Albumin 4.5 (3.5-5.0) g/dL Globulin 3.3 (1.7-4.1) g/dL Albumin/Globulin Ratio 1.4 (1.0-2.8) Urine Color Urine Appearance Urine pH (4.5-8.0) Ur Specific Beebe (1.000-1.035) Urine Protein (Negative) Urine Glucose (UA) (Normal) g/dL Urine Ketones (NEGATIVE) Urine Occult Blood (Negative) Urine Nitrate (Negative) Urine Bilirubin (NEGATIVE) Urine Urobilinogen (0.2) E.U./dL Ur Leukocyte Esterase (NEGATIVE) Urine RBC (0-5/HPF) Urine WBC (0-5/HPF) Urine Bacteria (None) Ur Culture Indicated? Micro UA Comment 08/18/18 Range/Units 16:25 WBC (4.5-11.0) X10^3/uL RBC (4.5-5.9) X10^6/uL Hgb (13.5-17.5) g/dL Hct (41-53) % MCV (80-100) fL MCH (26-34) PG MCHC (30-36) % RDW (11.6-14.8) % Plt Count (150-400) X10^3/uL Neut % (Auto) (50-75) % Lymph % (Auto) (25-40) % Glenn % (Auto) (3-14) % Eos % (Auto) (2-4) % Baso % (Auto) (0-2) % Neut # (Auto) (3404-1818) /uL Sodium (137-145) mmol/L Potassium (3.4-5.1) mmol/L Chloride (98-107) mmol/L Carbon Dioxide (22-32) mmol/L BUN (9-20) mg/dL Creatinine (0.66-1.25) mg/dL Estimated GFR (>60) mL/min BUN/Creatinine Ratio (6-22) Glucose (80-110) mg/dL Calcium (8.4-10.2) mg/dL Magnesium (1.6-2.3) mg/dL Total Bilirubin (0.2-1.3) mg/dL AST (17-59) IU/L ALT (21-72) IU/L Alkaline Phosphatase (38-126) U/L Total Creatine Kinase (55-170) U/L CK-MB (CK-2) CK-MB (CK-2) Rel Index Troponin I (0.01-0.034) ng/mL Total Protein (6.3-8.2) g/dL Albumin (3.5-5.0) g/dL Globulin (1.7-4.1) g/dL Albumin/Globulin Ratio (1.0-2.8) Urine Color Yellow Urine Appearance Clear Urine pH 6.5 (4.5-8.0) Ur Specific Beebe <=1.005 (1.000-1.035) Urine Protein Negative (Negative) Urine Glucose (UA) Negative (Normal) g/dL Urine Ketones Negative (NEGATIVE) Urine Occult Blood Negative (Negative) Urine Nitrate Negative (Negative) Urine Bilirubin Negative (NEGATIVE) Urine Urobilinogen 0.2 (0.2) E.U./dL Ur Leukocyte Esterase Negative (NEGATIVE) Urine RBC None seen (0-5/HPF) Urine WBC None seen (0-5/HPF) Urine Bacteria None seen (None) Ur Culture Indicated? Cult not indicated Micro UA Comment Microscopic normal Discharge Plan Departure Patient Disposition: Home Clinical Impression: Light-headed feeling, Elevated liver enzymes, Alcohol abuse Discharge Date/Time: 08/18/18 17:39 Interventions: ED Discharge Assessment Last Done: 08/18/18 17:37 Instructions: DI for Alcohol Abuse, DI for Dizziness-Nonvertigo Activity Restrictions/Additional Instructions: Your lab work came back normal today. Your vital signs have been stable throughout her stay in the emergency department. Your urine came back normal and your EKG and head CT were normal as well. Please push fluids and follow up with primary care provider. Please come back to emergency department for any acute concerns of stroke heart attack or urgent matters. Prescriptions: No Action indomethacin 50 mg capsule 50 mg PO BID RF: 0 magnesium oxide 500 MG tablet 500 mg PO QDAY Qty: 0 RF: 0 albuterol sulfate [Ventolin HFA] 90 MCG/PUFF HFA aerosol inhaler 2 puff INH Q4-6HP PRNQty: 1 RF: 0 [LOPERAMIDE HCL] 2 - 4 mg PO PRN PRNQty: 0 RF: 0 [IBUPROFEN ] 400 mg PO PRN PRNQty: 0 RF: 0 meclizine 25 MG tablet 25 mg PO PRN PRNQty: 0 RF: 0 Glucose: Home Monitoring Kit Qty: 1 RF: 0 levothyroxine [Synthroid] 75 MCG tablet 75 mcg PO QDAY Qty: 90 RF: 3 metformin [Glucophage XR] 500 MG tablet extended release 24 hr 500 mg PO QDAY Qty: 90 RF: 3 Glucose: Test Strips QDAY Qty: 100 RF: 6 Lancets .Route .MEDSUPPLY Qty: 1 RF: 3 metoprolol tartrate 50 mg tablet 25 - 50 mg PO BID Qty: 135 RF: 0 hydrochlorothiazide 25 mg tablet 25 mg PO QDAY Qty: 90 RF: 0 acyclovir 400 mg tablet 400 mg PO BID Qty: 20 RF: 6 Referrals: Valerie Shi PA-C [Primary Care Provider] - <Nicole Flanagan DO - Last Filed: 08/19/18 07:55> [facility] Attestation: I was immediately available in the department for consultation. Documentation has been reviewed. I agree with assessment and plan.
[2018-08-18 14:19] LABS: Add Manual Diff / Slide Review NO; Basophils Percent Auto 0.2 % (0-2); Eosinophils Percent Auto 1.6 % (2-4); Hematocrit 46.7 % (41-53); Hemoglobin 16.3 g/dL (13.5-17.5); Lymphocytes Percent Auto 26.3 % (25-40); Mean Corpuscular Volume 102.8 fL (80-100); Monocytes Percent Auto 10.2 % (3-14); Neutrophils Absolute Auto 4800 /uL (3000-5900); Neutrophils Percent Auto 61.7 % (50-75); Platelet Count 140 X10^3/uL (150-400); Red Blood Cell Count 4.54 X10^6/uL (4.5-5.9); Red Cell Distribution Width 14.3 % (11.6-14.8); White Blood Cell Count 7.8 X10^3/uL (4.5-11.0)
[2018-08-18] MEDS: SODIUM CHLORIDE 0.9% 1,000 ML 1000 ML IV (14:20)
[2018-08-18 14:30] LABS: Alanine Aminotransferase 167 IU/L (21-72); Albumin 4.5 g/dL (3.5-5.0); Albumin Globulin Ratio 1.4 (1.0-2.8); Alkaline Phosphatase 66 U/L (38-126); Aspartate Aminotransferase 135 IU/L (17-59); Bilirubin Total 1.7 mg/dL (0.2-1.3); Blood Urea Nitrogen 12 mg/dL (9-20); Calcium 9.8 mg/dL (8.4-10.2); Carbon Dioxide 31 mmol/L (22-32); Chloride 100 mmol/L (98-107); Estimated Glomerular Filt Rate > 60.0 mL/min (>60); Globulin 3.3 g/dL (1.7-4.1); Glucose 111 mg/dL (80-110); HEMOLYSIS 17 (0-50); Magnesium 1.6 mg/dL (1.6-2.3); Potassium 3.9 mmol/L (3.4-5.1); Sodium 142 mmol/L (137-145); Total Protein 7.8 g/dL (6.3-8.2)
[2018-08-18 14:41] VITALS: BP 128/58; PULSE 54; RESP 15; O2SAT 99
--- NOTE | 2018-08-18 14:45 | DI.CT.S_ITS ---
PROCEDURE: CT HEAD/BRAIN WO CON INDICATIONS: lightheadedness TECHNIQUE: Noncontrast 4.5 mm thick angled axial sections acquired from the foramen magnum to the vertex, with coronal and sagittal reformats. For radiation dose reduction, the following was used: automated exposure control, adjustment of mA and/or kV according to patient size. COMPARISON: None. FINDINGS: Image quality: Excellent. CSF spaces: Basal cisterns are patent. No extra-axial fluid collections. The ventricles are symmetric in size and shape. Brain: No intracranial bleeds or masses. There is cerebral volume loss for age, with resultant ventricular and sulcal prominence. There are periventricular and deep white matter chronic small vessel ischemic changes. There is intracranial internal carotid artery atherosclerosis. Skull and face: Calvarium and visualized facial bones appear intact, without suspicious lesions. Sinuses: Visualized sinuses and mastoids are clear. IMPRESSION: 1. No acute intracranial process. 2. Mild atrophy and chronic microvascular ischemic changes. Dictated by: Serenity Hernández M.D. on 08/18/2018 at 15:07 Approved by: Serenity Hernández M.D. on 08/18/2018 at 15:07
[2018-08-18 14:57] LABS: Creatine Kinase 54 U/L (55-170)
[2018-08-18 15:12] LABS: Troponin I < 0.012 ng/mL (0.01-0.034)
[2018-08-18 15:32] VITALS: BP 151/68; BP 155/76; BP 158/76; PULSE 70; PULSE 74
[2018-08-18 16:40] LABS: Bacteria Urine None Seen; RBC Urine None Seen (0-5/HPF); WBC Urine None Seen (0-5/HPF)
[2018-08-18 16:42] LABS: Appearance Urine UA CLEAR; Bilirubin Urine UA NEGATIVE (NEGATIVE); Color Urine UA YELLOW; Glucose Urine UA NEGATIVE (Normal); Ketones Urine UA NEGATIVE (NEGATIVE); Leukocyte Esterase Urine UA NEGATIVE (NEGATIVE); Nitrite Urine UA Negative (Negative); Occult Blood Urine UA NEGATIVE (Negative); Protein Urine UA NEGATIVE (Negative); Specific Gravity Urine UA <=1.005 (1.000-1.035); Urobilinogen Urine UA 0.2 E.U./dL (0.2); pH Urine UA 6.5 (4.5-8.0)
[2018-08-18 16:48] VITALS: BP 132/61; PULSE 61; RESP 15; O2SAT 100
[2018-08-18 16:48] LABS: Culture Indicated Urine Cult Not Indicated; Urine Comments Microscopic Normal
--- NOTE | 2018-08-22 17:17 | PC.NURSE ---
Pt feeling about the same but is following up with pcp. Pt states that we did great
== END 2018-08-18 17:39 | disposition home or self-care (01) ==
PROVIDERS: Emergency Provider Nurse Practitioner Family; Family Provider Physician Assistant; PCP Physician Assistant
DX: R42 Dizziness and giddiness (principal); R74.8 Abnormal levels of other serum enzymes; F10.10 Alcohol abuse, uncomplicated
CPT/HCPCS: 36591; 70450; 80053; 81001; 82550; 83735; 84484; 85025; 93005; 96360; 96361; 99283; 99285

== ENCOUNTER → 2018-08-28 15:20 | Outpatient (CLI) | payer MEDICARE, OTHER, SELFPAY ==
--- NOTE | 2018-08-28 15:25 | DI.US.S_ITS ---
PROCEDURE: US CAROTID DOPPLER BI INDICATIONS: syncope with AMS TECHNIQUE: Color and pulse Doppler interrogation was performed of both carotid systems, with image documentation and velocity measurements. COMPARISON: None. FINDINGS: Stenosis calculations are based on SRU (Society of Radiologists in Ultrasound) criteria. Right side: Brachial blood pressure: 110/68 mm Hg. Common carotid artery peak systolic velocity: 127 cm/sec. Internal carotid artery peak systolic velocity: 72 cm/sec. Internal carotid artery end diastolic velocity: 23 cm/sec. External carotid artery peak systolic velocity: 123 cm/sec. ICA/CCA peak systolic ratio: 0.6. Christopher scale imaging description: Mild scattered plaque. Percent internal carotid artery stenosis: Less than 50%. Vertebral artery: Flow direction is antegrade. Left side: Brachial blood pressure: 122/67 mm Hg. Common carotid artery peak systolic velocity: 79 cm/sec. Internal carotid artery peak systolic velocity: 79 cm per sec Internal carotid artery end diastolic velocity: 23 External carotid artery peak systolic velocity: 105 ICA/CCA peak systolic ratio: 0.8. Christopher scale imaging description: Minimal scattered plaque. Percent internal carotid artery stenosis: Less than 50%. Vertebral artery: Flow direction is antegrade. IMPRESSION: Less than 50% bilateral internal carotid artery stenosis. Dictated by: Garret HADDAD Interpreted: Wanda Hooks MD on 08/28/2018 at 16:05 Approved by: Wanda Hooks M.D. on 08/28/2018 at 16:14
== END ==
PROVIDERS: Family Provider Physician Assistant; PCP Physician Assistant; Visit Provider Nurse Practitioner Family
DX: R55 Syncope and collapse (principal)
CPT/HCPCS: 93880

== ENCOUNTER 2019-07-15 21:08 | Inpatient (IN) | payer MEDICARE, OTHER, SELFPAY ==
[2019-07-15 21:58] VITALS: BP 159/74; PULSE 113; RESP 22; TEMP 37.3; O2SAT 98
--- NOTE | 2019-07-15 22:14 | ED.RECABL ---
HPI - Recheck/Abnormal Lab/Rx General Chief Complaint: Recheck/Abnormal Lab/Rx Stated Complaint: Acute Kidney Pain Time Seen by Provider: 07/15/19 21:22 Source: patient and family Mode of arrival: ambulatory Limitations: no limitations History of Present Illness HPI narrative: 68-year-old male nonsmoker, chronic drinker with history of hypertension and melanoma is sent by his primary care provider for evaluation of abnormal labs which were drawn routinely. Most notably, patient had sodium down to 125 from his normal of 136 and a slight bump in his creatinine from 0.6 up to 1.18. His PCP sent him here for evaluation and stabilization. The patient initially was connected with the [facility] for evaluation and treatment of a melanoma on his leg and state with them for primary care, though he lives locally. He recently has had some alterations in his medications, the details of which are in the note coming from , additionally he has had chronic diarrhea. He drinks upwards of 8 glasses of wine daily, he has never had any problems with DTs or withdrawal type symptoms. For the past 5 days he has had increasing weakness, tremendous fatigue and decreased oral intake. He has been sleeping upwards of 20 hours per day. He denies any fever chills MD complaint: abnormal lab Returns today for: called because of abnormal lab/test Symptoms since prior visit: no new symptoms Context: called for abnormal lab result Associated symptoms: malaise Related Data Home Medications Medication Instructions Recorded Confirmed [IBUPROFEN ] 400 mg PO PRN PRN #0 01/17/17 08/22/18 acyclovir 400 mg PO DAILY PRN 07/16/19 cholecalciferol (vitamin D3) 1,000 unit PO DAILY 07/16/19 07/16/19 enalapril maleate 10 mg PO BID 07/16/19 gabapentin 300 mg PO BEDTIME 07/16/19 07/16/19 potassium chloride 20 meq PO DAILY 07/16/19 07/16/19 Previous Rx's Medication Instructions Recorded Glucose: Home Monitoring Kit kit #1 01/31/17 Glucose: Test Strips str QDAY #100 01/07/18 levothyroxine [Synthroid] 75 mcg PO QDAY #90 tab 01/07/18 Lancets #1 ea 04/03/18 hydrochlorothiazide 25 mg tablet 25 mg PO QDAY #90 tab 04/10/18 Allergies Allergy/AdvReac Type Severity Reaction Status Date / Time acetaminophen [ACETAMINOPHEN] AdvReac Severe Has Verified 08/22/18 11:02 Elevated LFTs due ETOH Review of Systems Constitutional Constitutional: Denies chills, Reports fatigue, Denies fever(s), Denies frequent falls, Reports lethargy and Reports weakness Eyes Eyes: Denies change in vision, Denies eye discharge, Denies irritation and Denies loss of vision ENT Ears, Nose, Mouth, and Throat: Denies change in voice, Denies dizziness, Denies neck pain, Denies sore throat and Denies throat swelling Cardiovascular Cardiovascular: Denies chest pain, Denies irregular heart rhythm, Denies lightheadedness, Denies palpitations, Denies dyspnea, Denies dyspnea on exertion and Denies orthopnea Respiratory Respiratory: Denies cough, Denies dyspnea, Denies dyspnea on exertion and Denies wheezing Gastrointestinal Gastrointestinal: Denies abdominal pain, Denies change in bowel habits, Denies diarrhea, Denies nausea and Denies vomiting Genitourinary Genitourinary: Denies hematuria, Denies flank pain, Denies urinary incontinence and Denies urinary urgency Musculoskeletal Musculoskeletal: Denies back pain, Denies muscle weakness, Denies neck pain, Denies numbness and Denies tingling Integumentary/Breasts Skin/Breast: Denies pruritus, Denies erythema, Denies rash and Denies wounds Neurologic Neurologic: Denies behavioral changes, Denies confusion, Denies dizziness, Denies frequent falls, Denies loss of vision, Denies numbness, Denies tingling and Reports weakness Psychiatric Psychiatric: Denies anxiety, Denies behavioral changes, Denies confusion, Denies depression, Denies homicidal ideation and Denies suicidal ideation Endocrine Endocrine: Reports fatigue, Denies flushing and Denies palpitations Hematologic/Lymphatic Hematologic/Lymphatic: Denies easy bruising Allergic/Immunologic Allergic/Immunologic: Denies urticaria, Denies throat swelling and Denies wheezing [facility] Medical History Superficial spreading malignant melanoma of skin (Acute) Family History (Updated 03/07/16 @ 00:00 by Conversion Provider) Father History of stroke Diabetes mellitus Mother Heart disease Sister Asthma Social History Smoking Status: Never smoker alcohol intake: current Family History Father History of stroke Diabetes mellitus Mother Heart disease Sister Asthma Social History Smoking Status: Never smoker alcohol intake: current Exam Narrative Exam Narrative: GENERAL: [68] year old patient appears stated age. Well-nourished, well-developed patient, in mild distress. Somnolent but easily arousable HEAD: Atraumatic. Normocephalic. EYES: Pupils equal round and reactive. Extraocular motions intact. No scleral icterus. No injection or drainage. ENT: Nose without bleeding, purulent drainage. Throat without erythema, tonsillar hypertrophy or exudate. Airway patent. NECK: Trachea midline. Non tender CARDIOVASCULAR: Tachycardic but regular rhythm without murmurs, gallops, or rubs. RESPIRATORY: Clear to auscultation. Breath sounds equal bilaterally. No wheezes, rales, or rhonchi. GASTROINTESTINAL: Abdomen soft, non-tender, nondistended. EXTREMITIES: No edema or joint tenderness. BACK: Nontender without deformity or crepitance. No flank tenderness. NEURO: AOx3. SKIN: No rash or erythema of visible areas Initial Vital Signs Initial Vital Signs: Vital Signs Temperature 99.2 F 07/15/19 21:58 Pulse Rate 113 H 07/15/19 21:58 Respiratory Rate 22 07/15/19 21:58 Blood Pressure 159/74 H 07/15/19 21:58 Pulse Oximetry 98 07/15/19 21:58 Course Orders Ordered: ED Orders 07/15/19 22:20 Urinalysis and Microscopic Stat 07/15/19 22:25 Complete Blood Count AUTO DIFF Stat Comprehensive Metabolic Panel Stat Magnesium Stat Discontinued Medications Sodium Chloride (Normal Saline 0.9%) 1,000 mls @ 1,000 mls/hr IV BOLUS ONE Stop: 07/15/19 23:12 Last Infusion: 07/15/19 23:30 Dose: 1,000 mls/hr Documented by: Admin: 07/15/19 22:15 Dose: 1,000 mls/hr Documented by: ASHLYN Magnesium Sulfate (Magnesium Sulfate) 2 gm in 50 mls @ 25 mls/hr IV NOW ONE Stop: 07/16/19 00:51 Last Infusion: 07/16/19 00:54 Dose: 0 mls/hr Documented by: ASHLYN Cosigned by: LILLIAN Admin: 07/15/19 23:02 Dose: 25 mls/hr Documented by: ASHLYN Cosigned by: LILLIAN Sodium Chloride (Normal Saline 0.9%) 1,000 mls @ 1,000 mls/hr IV BOLUS ONE Stop: 07/16/19 00:21 Last Infusion: 07/16/19 00:25 Dose: 1,000 mls/hr Documented by: Admin: 07/15/19 23:20 Dose: 1,000 mls/hr Documented by: ASHLYN Consultations Consultation #1: Hospitalist happy to accept on her service Vital Signs Vital signs: Vital Signs - 8 hr 07/15/19 21:58 Temperature 99.2 F Pulse Rate 113 H Respiratory Rate 22 Blood Pressure 159/74 H Pulse Oximetry 98 MDM - Recheck/Abnormal Lab/Rx Lab Data Result diagrams: 07/15/19 22:25 07/15/19 22:25 Labs: Lab Results 07/15/19 07/15/19 07/15/19 Range/Units 22:20 22:25 22:25 WBC 10.1 (4.5-11.0) X10^3/uL RBC 4.31 L (4.5-5.9) X10^6/uL Hgb 15.8 (13.5-17.5) g/dL Hct 44.4 (41-53) % MCV 103.0 H (80-100) fL MCH 36.7 H (26-34) PG MCHC 35.6 (30-36) % RDW 14.3 (11.6-14.8) % Plt Count 112 L (150-400) X10^3/uL Neut % (Auto) 82.2 H (50-75) % Lymph % (Auto) 9.1 L (25-40) % [place] % (Auto) 8.4 (3-14) % Eos % (Auto) 0.1 L (2-4) % Baso % (Auto) 0.2 (0-2) % Neut # (Auto) 8300 H (4242-8503) /uL Lymph # (Auto) 900 L (8237-4959) /uL [place] # (Auto) 900 (0-900) /uL Eos # (Auto) 0 (0-450) /uL Baso # (Auto) 0 (0-100) /uL Sodium 128 L (137-145) mmol/L Potassium 3.7 (3.4-5.1) mmol/L Chloride 87 L (98-107) mmol/L Carbon Dioxide 20 L (22-32) mmol/L BUN 14 (9-20) mg/dL Creatinine 1.10 (0.66-1.25) mg/dL Estimated GFR > 60.0 (>60) mL/min BUN/Creatinine Ratio 12.7 (6-22) Glucose 133 H (80-110) mg/dL Calcium 9.9 (8.4-10.2) mg/dL Magnesium 1.1 L (1.6-2.3) mg/dL Total Bilirubin 1.6 H (0.2-1.3) mg/dL AST 195 H (17-59) IU/L ALT 166 H (21-72) IU/L Alkaline Phosphatase 76 (38-126) U/L Total Protein 8.4 H (6.3-8.2) g/dL Albumin 4.9 (3.5-5.0) g/dL Globulin 3.5 (1.7-4.1) g/dL Albumin/Globulin Ratio 1.4 (1.0-2.8) Urine Color Yellow Urine Appearance Clear Urine pH 5.0 (4.5-8.0) Ur Specific [place] 1.020 (1.000-1.035) Urine Protein 1+ H (Negative) Urine Glucose (UA) Negative (Negative) g/dL Urine Ketones 1+ H (NEGATIVE) Urine Occult Blood 1+ H (Negative) Urine Nitrate Negative (Negative) Urine Bilirubin Negative (NEGATIVE) Urine Urobilinogen 0.2 (0.2) E.U./dL Ur Leukocyte Esterase Negative (NEGATIVE) Urine RBC 0-1/hpf (0-5/HPF) Urine WBC None seen (0-5/HPF) Urine Bacteria None seen (None) Hyaline Casts 1-5/lpf (None) Ur Culture Indicated? Cult not indicated MDM Narrative Medical decision making narrative: Patient with extreme fatigue, decreased appetite and somnolence over the past few days presents with abnormal labs including hyponatremia and hypomagnesemia. Additionally he has had a small bump in his creatinine. He requires admission to the hospital for stabilization and further characterization of his illness. The patient understands the plan and is in complete agreement Discharge Plan Departure Patient Disposition: Admitted as Observation Clinical Impression: Acute hyponatremia, Hypomagnesemia, Acute kidney injury Admit Date/Time: 07/15/19 23:56 Admit Provider: Mariam Ocasio
[2019-07-15] MEDS: SODIUM CHLORIDE 0.9% 1,000 ML 1000 ML IV ×2 (22:15→23:20)
[2019-07-15 22:34] LABS: Add Manual Diff / Slide Review NO; Basophils Absolute Auto 0 /uL (0-100); Basophils Percent Auto 0.2 % (0-2); Eosinophils Absolute Auto 0 /uL (0-450); Eosinophils Percent Auto 0.1 % (2-4); Hematocrit 44.4 % (41-53); Hemoglobin 15.8 g/dL (13.5-17.5); Lymphocytes Absolute Auto 900 /uL (1100-4500); Lymphocytes Percent Auto 9.1 % (25-40); Mean Corpuscular HGB Conc 35.6 % (30-36); Mean Corpuscular Hemoglobin 36.7 PG (26-34); Monocytes Absolute Auto 900 /uL (0-900); Monocytes Percent Auto 8.4 % (3-14); Neutrophils Absolute Auto 8300 /uL (1500-7000); Neutrophils Percent Auto 82.2 % (50-75); Platelet Count 112 X10^3/uL (150-400); Red Blood Cell Count 4.31 X10^6/uL (4.5-5.9); Red Cell Distribution Width 14.3 % (11.6-14.8); White Blood Cell Count 10.1 X10^3/uL (4.5-11.0)
[2019-07-15 22:43] LABS: Alanine Aminotransferase 166 IU/L (21-72); Albumin 4.9 g/dL (3.5-5.0); Albumin Globulin Ratio 1.4 (1.0-2.8); Alkaline Phosphatase 76 U/L (38-126); Aspartate Aminotransferase 195 IU/L (17-59); BUN Creatinine Ratio 12.7 (6-22); Bilirubin Total 1.6 mg/dL (0.2-1.3); Blood Urea Nitrogen 14 mg/dL (9-20); Calcium 9.9 mg/dL (8.4-10.2); Carbon Dioxide 20 mmol/L (22-32); Chloride 87 mmol/L (98-107); Estimated Glomerular Filt Rate > 60.0 mL/min (>60); Globulin 3.5 g/dL (1.7-4.1); Glucose 133 mg/dL (80-110); HEMOLYSIS < 15 (0-50); Magnesium 1.1 mg/dL (1.6-2.3); Potassium 3.7 mmol/L (3.4-5.1); Sodium 128 mmol/L (137-145); Total Protein 8.4 g/dL (6.3-8.2)
[2019-07-15 23:00] VITALS: BP 141/70; PULSE 111; RESP 20; O2SAT 98
[2019-07-15] MEDS: MAGNESIUM SULFATE 2 GM/50 ML PIGGYBACK IV (23:02)
[2019-07-15 23:09] LABS: Bacteria Urine None Seen; WBC Urine None Seen (0-5/HPF)
[2019-07-15 23:10] LABS: Appearance Urine UA CLEAR; Bilirubin Urine UA NEGATIVE (NEGATIVE); Color Urine UA YELLOW; Glucose Urine UA NEGATIVE (Negative); Ketones Urine UA 1+ (NEGATIVE); Leukocyte Esterase Urine UA NEGATIVE (NEGATIVE); Nitrite Urine UA NEGATIVE (Negative); Occult Blood Urine UA 1+ (Negative); Protein Urine UA 1+ (Negative); Urobilinogen Urine UA 0.2 E.U./dL (0.2)
[2019-07-15 23:28] LABS: Culture Indicated Urine Cult Not Indicated; Hyaline Casts Urine 1-5/LPF; RBC Urine 0-1/HPF (0-5/HPF)
[2019-07-16] VITALS (11 sets, daily range): BP systolic 124–158; BP diastolic 64–78; PULSE 74–110; RESP 16–20; TEMP 37–37.4; O2SAT 95–99; BMI 28.7
--- NOTE | 2019-07-16 00:10 | PC.NURSE ---
Medication reconciliation attempted. Pt unable to recall medications, significant other has a copy on her tablet she will bring in for pt admission.
[2019-07-16] MEDS: SODIUM CHLORIDE 0.9% 1,000 ML 125 ML IV (01:32)
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
[2019-07-16 02:08] LABS: Sodium 130 mmol/L (137-145)
[2019-07-16 02:11] LABS: Magnesium 1.5 mg/dL (1.6-2.3)
[2019-07-16 06:41] LABS: Add Manual Diff / Slide Review NO; Basophils Absolute Auto 0 /uL (0-100); Basophils Percent Auto 0.4 % (0-2); Eosinophils Absolute Auto 0 /uL (0-450); Eosinophils Percent Auto 0.1 % (2-4); Hemoglobin 14.7 g/dL (13.5-17.5); Lymphocytes Absolute Auto 1400 /uL (1100-4500); Mean Corpuscular HGB Conc 35.8 % (30-36); Mean Corpuscular Hemoglobin 36.8 PG (26-34); Mean Corpuscular Volume 102.8 fL (80-100); Monocytes Absolute Auto 800 /uL (0-900); Monocytes Percent Auto 9.2 % (3-14); Neutrophils Absolute Auto 6200 /uL (1500-7000); Neutrophils Percent Auto 73.3 % (50-75); Platelet Count 108 X10^3/uL (150-400); Red Blood Cell Count 3.99 X10^6/uL (4.5-5.9); White Blood Cell Count 8.4 X10^3/uL (4.5-11.0)
[2019-07-16 06:49] LABS: Magnesium 1.6 mg/dL (1.6-2.3)
[2019-07-16 06:54] LABS: Blood Urea Nitrogen 14 mg/dL (9-20); Calcium 9.3 mg/dL (8.4-10.2); Carbon Dioxide 23 mmol/L (22-32); Chloride 91 mmol/L (98-107); Estimated Glomerular Filt Rate > 60.0 mL/min (>60); Glucose 135 mg/dL (80-110); HEMOLYSIS < 15 (0-50); Potassium 3.9 mmol/L (3.4-5.1); Sodium 130 mmol/L (137-145)
[2019-07-16] MEDS: LOPERAMIDE 2 MG CAPSULE 4 MG PO (07:00)
[2019-07-16 07:24] LABS: Thyroid Stimulating Hormone 4.03 uIU/mL (0.47-4.68)
--- NOTE | 2019-07-16 07:34 | PC.NURSE ---
Lab called patient test positive for campylobacter [id number].
[2019-07-16] MEDS: MULTIVITAMIN 1 TABLET 1 TAB PO (09:44)
[2019-07-16] MEDS: FOLIC ACID 1 MG TABLET PO (09:44)
[2019-07-16] MEDS: ENALAPRIL 5 MG TABLET 10 MG PO ×2 (09:44→21:31)
[2019-07-16] MEDS: LORazepam 1 MG TABLET 2 MG PO ×2 (09:51→17:07)
--- NOTE | 2019-07-16 10:47 | CM.DANOTE ---
DCP: Case received, EMR reviewed and met with patient. Introduced self and role. Significant other, Amy Talbert was at bedside as well. Was able to obtain baseline health information from patient. DCP assessment/template, completed with information currently available. Patient is a 68 year old male who admitted yesterday evening to the care of the hospitalist team. PCP: Dr. Ramos ([facility]). Payer: Medicare Patient came to hospital via family vehicle secondary to weakness. Patient had been at his PCP appt yesterday at [facility], and had lab work done. When patient arrived, his doctor had stated that he had hyponatremia, as well as hypomagnesmia. Patient is here for treatment. He has history of HTN, as well as diabetes. He resides with his significant other, Amy. P: DCP to continue to follow closely. Patient should be able to return home when his labs are stable, and he is medically stable as well. Sudha Timmons RN/Supervisor Taping
--- NOTE | 2019-07-16 14:15 | PC.NURSE ---
Pt has been noticed to have gross tremors to his bilateral upper extremities this morning. Pt does not believe they are related to DT's from ETOH however he reports they come and go. He is unable to say when they are more prominent. Pt has been medicated with 2mg PO ativan this shift and pt was able to sleep for two hours. When pt awoke his tremors were much improved. His CIWA is 7. Pt was also noticed to have a blood section to the outer portion of his left eye which spread across to the inner corner as pink. No abnormal drainage noted. Pt has denied pain. Dr. Cain has been made aware.
[2019-07-16] MEDS: THIAMINE 100 MG TABLET PO (17:06)
--- NOTE | 2019-07-16 17:56 | PC.NURSE ---
Addendum entered by Alma Delia Patiño R.N. 07/16/19 19:46: Pt without tremors with BL arms outstretched. Free water restriction 1200 cc's in 24 hours and this was explained to pt. Pt is alert and oriented although continues to requires frequent explanations for care and repeat explanations. Bed alarm in place. Denies any visual disturbance to left eye. Sclera is profoundly reddened with tearing. Original Note: Dr. Cain in to see patient. Pt's spouse is present in pt's room as well. Pt demonstrates tremors with arms outstretched BL. Per Dr. Cain, ativan was administered as per emar. Pt and spouse report pt has h/o occasional tremors. Pt's skin is moist to touch. Pt is forgetful and plan of care explained to pt several times as per Dr. Cain's directions/instructions. Pt denies pain, denies nausea. Able to position self in bed for evening meal. Spouse assists pt with set up. Pt is able to feed self.
[2019-07-16] MEDS: GABAPENTIN 300 MG CAPSULE PO (21:30)
[2019-07-16] MEDS: SODIUM CHLORIDE 0.9% FLUSH 10 ML IV (21:31)
[2019-07-17 05:11] VITALS: BP 121/60; PULSE 77; RESP 16; TEMP 37.2; O2SAT 97
[2019-07-17 05:25] VITALS: BP 121/60; PULSE 77
[2019-07-17] MEDS: LEVOTHYROXINE 75 MCG TABLET PO (06:25)
[2019-07-17 06:42] LABS: BUN Creatinine Ratio 21.7 (6-22); Blood Urea Nitrogen 13 mg/dL (9-20); Calcium 9.3 mg/dL (8.4-10.2); Carbon Dioxide 29 mmol/L (22-32); Chloride 97 mmol/L (98-107); Estimated Glomerular Filt Rate > 60.0 mL/min (>60); Glucose 105 mg/dL (80-110); HEMOLYSIS < 15 (0-50); Potassium 3.4 mmol/L (3.4-5.1); Sodium 133 mmol/L (137-145)
[2019-07-17 08:00] VITALS: PULSE 77; TEMP 37.2; O2SAT 97
[2019-07-17 08:17] VITALS: BP 135/81
[2019-07-17] MEDS: THIAMINE 100 MG TABLET PO (08:17)
[2019-07-17] MEDS: ENOXAPARIN 40 MG/0.4 ML SYRINGE SUBCUT (08:17)
[2019-07-17] MEDS: FOLIC ACID 1 MG TABLET PO (08:17)
[2019-07-17] MEDS: ENALAPRIL 5 MG TABLET 10 MG PO (08:17)
[2019-07-17] MEDS: MULTIVITAMIN 1 TABLET 1 TAB PO (08:17)
[2019-07-17] MEDS: SODIUM CHLORIDE 0.9% FLUSH 10 ML IV (08:18)
--- NOTE | 2019-07-17 12:40 | P.DS_ITS ---
History of Present Illness History of Present Illness Date Patient Seen: 07/17/19 Chief complaint: Profound fatigue, hyponatremia Narrative: ezra Ceja is a 68 year old male with a history of essential hypertension, bilateral peripheral neuropathy, diabetes type 2 well controlled, and alcohol use presented to the emergency department at the request of his PCP in [place] due to having a sodium level of 126 and a creatinine increase doubling to 1.2. Upon presentation he was also found to have a low magnesium of 1.1. History is provided by his partner Amy, as well as the patient. He has been very weak, sleeping about 20 hours a day which is not normal for him. He had previously been taking magnesium and they recently decreased his magnesium dose due to diarrhea. He does state that he has very little appetite, eats about 10 meals a day in very small quantities and feels full quickly. He denies chest pain, shortness of breath however he has no energy reserve. He has had chronic diarrhea for 1 year. He denies any dysuria or hematuria. He states that his hands and feet have pins, needles and numbing and is currently dealing with a shoulder issue and going to physical therapy for that. He has a history of basal cell and melanoma which was last removed along with the sentinel lymph node approximately a year ago. His girlfriend states that he has been profoundly depressed and she is not sure if that is because of the lethargy or whether it's preceding some of his symptoms. He does denies polyuria or polydipsia and denies easy bleeding or bruising. He endorses having leg spasms that he do, but does wake him up at night and it is unknown how long these periods last. He went to the [facility] for a visit with his PCP who apparently changed 3 of his meds including stopping his diabetic medications. They ran labs today and due to his sodium and creatinine values, his PCP called him and requested that he come into the emergency department for rehydration. He was also found to have a magnesium level of 1.1 and was given 2 g of IV magnesium. Prior to the diagnosis of diabetes, the patient had had an unintentional weight loss of 30 lb and eventually has now reached the point where it is diet controlled. His Comun[place] A1c was 5.0 and he was requested to stop taking his metformin today by his PCP. Discharge Providers Provider Date of admission: 07/15/19 23:56 Discharge Date: 07/17/19 Consults: 07/17/19 11:45 Consult to Physical Therapy Evaluate & Treat Comment: Physician Instructions: Evaluate and Treat Discharge provider: Keyla Cain MD Summary Hospital Course Discharge Diagnosis: 1. Hyponatremia 2. Alcohol dependence without evidence of withdrawal 3. Hypertension 4. Hypothyroidism 5. Type 2 diabetes 6. Peripheral neuropathy 7. Elevated liver function tests likely related to alcohol Hospital Course: Patient is a 68-year-old male who was admitted to the hospital with profound weakness hyponatremia, hypertension, type 2 diabetes. Patient was given IV saline. He also was placed on a 1200 cc fluid restriction. He had i mprovement of his sodium up to 133 from 12/07. He was able to ambulate with a walker without difficulty. The patient initially had some tremor and diarrhea. The diarrhea resolved. Shaking improved as well. He had some initial jerking of his lower extremities which seemed to improve as well. Patient reports he feels that he is 50-75% back to his baseline. He is anxious to discharge and feels strong enough and well enough to do so. He was seen by Physical therapy. They are recommending a walker for him upon return home. I have discussed the care with his significant other. She will continue to assist with fluid restriction. Patient has been encouraged to decrease his wine intake as well. Overall he is deemed appropriate for discharge and arrangements were made for him to discharge home. Exam Vital Signs (past 8 hours): - 07/17/19 05:11 07/17/19 05:25 07/17/19 08:00 Temperature 98.9 F 98.9 F Pulse Rate 77 77 77 Respiratory Rate 16 Blood Pressure 121/60 121/60 Pulse Oximetry 97 97 07/17/19 08:17 Temperature Pulse Rate Respiratory Rate Blood Pressure 135/81 Pulse Oximetry Oxygen Delivery Method Room Air Oxygen Flow Rate 0 Narrative Exam Narrative: Pleasant elderly male in no obvious distress HEENT: He has a left subconjunctival hemorrhage, some swelling of the left eye as well. Lungs: Clear to auscultation Cardiac exam: Regular rate and rhythm normal S1-S2 Abdomen: Soft nontender nondistended Extremities: No edema Objective Labs Result Diagrams: 07/16/19 06:30 07/17/19 06:05 Labs: Laboratory Results - last 24 hr 07/17/19 06:05 Sodium 133 L Potassium 3.4 Chloride 97 L Carbon Dioxide 29 BUN 13 Creatinine 0.60 L Estimated GFR > 60.0 BUN/Creatinine Ratio 21.7 Glucose 105 Calcium 9.3 Discharge Plan Discharge Plan Patient Disposition: Home Discharge comment: See discharge summary. Follow-up with primary care physician in 1 week. Discharge Med Rec/Prescriptions Prescriptions: Continued Glucose: Home Monitoring Kit Qty: 1 RF: 0 levothyroxine [Synthroid] 75 MCG tablet 75 mcg PO QDAY Qty: 90 RF: 3 Glucose: Test Strips QDAY Qty: 100 RF: 6 gabapentin 300 mg Capsule 300 mg PO BEDTIME RF: 0 cholecalciferol (vitamin D3) 1,000 unit Capsule 1,000 unit PO DAILY RF: 0 enalapril maleate 5 mg tablet 10 mg PO BID RF: 0 acyclovir 400 mg tablet 400 mg PO DAILY PRN (Reason: Cold Sores) RF: 0 Discontinued ibuprofen 200 mg Tablet 400 mg PO PRN PRN (Reason: pain) Qty: 0 RF: 0 hydrochlorothiazide 25 mg tablet 25 mg PO QDAY Qty: 90 RF: 0 potassium chloride 20 mEq Tablet Extended Release 20 meq PO DAILY RF: 0 No Action (DME) Lancets 0 .Route .MEDSUPPLY Qty: 1 RF: 3 Provider Discharge Instructions Diet: Low-sodium Activity: As tolerated front wheel walker as needed Quality VTE Deep Vein Thrombosis/Pulmonary Embolism Present on Admission: No
--- NOTE | 2019-07-17 13:16 | PT.IIE ---
Current Diagnoses Hypothyroidism, unspecified (07/15/19) Type 2 diabetes mellitus without complications (07/15/19) Mixed hyperlipidemia (07/15/19) Hypomagnesemia (07/15/19) Hypo-osmolality and hyponatremia (07/15/19) Alcohol dependence, uncomplicated (07/15/19) Unspecified mononeuropathy of bilateral upper limbs (07/15/19) Essential (primary) hypertension (07/15/19) Acute kidney failure, unspecified (07/15/19) Diarrhea, unspecified (07/15/19) Other fatigue (07/15/19) Medical History (Last Reviewed 07/16/19 @ 01:52 by HANNA Pagan) Alcohol dependence (Acute) Superficial spreading malignant melanoma of skin (Chronic) Physical Therapy Inpatient Evaluation/Re-Eval M1 PT/OT-IP Prior Functional Status Start: 07/17/19 12:08 Freq: NEEDED Status: Active Protocol: Document 07/17/19 12:56 AW (Rec: 07/17/19 13:16 AW [id number]) Medical Review Prior Functional Status Medical History Reviewed Yes Diet/Fluid Consistency Regular Communication Pt able to make needs known at baseline Mobility and Gait Pt was independent with ambulation except for occasional use of trekking poles within the past two weeks due to perceived unsteadiness. Activities of Daily Living and IADL's Independent, including driving Social History Household Members significant other Living Arrangements House Number of Floors (Floors) Two Floors Number of Stairs To Enter/Railing? 1 DANAY no railing; 13 steps inside with R rail ascending. Pt reports the steps are narrow and he is in the habit of descending the stairs backward Home Environment Standard Height Toilet,Walk in Shower,Built-In Shower Seat, Narrow Doors Home Equipment Grab Bars In Shower Employment Status Retired Additional Social History Comment Pt splits his time between his home in [place] and his partner's home in [place]. The FH home has no stairs. M2 PT-IP Current Condition Start: 07/17/19 12:08 Freq: NEEDED Status: Active Protocol: Document 07/17/19 12:56 AW (Rec: 07/17/19 13:16 AW [id number]) Physical Therapy Current Condition Current Condition Evaluation Date 09/05/19 Treatment Diagnosis weakness, impaired balance and gait Weight Bearing Status Weight Bearing Status Full Weight Bearing M3 PT-IP Subjective Start: 07/17/19 12:08 Freq: NEEDED Status: Active Protocol: Document 07/17/19 12:56 AW (Rec: 07/17/19 13:16 AW [id number]) Subjective Physical Therapy Visit Type Type Initial Evaluation Visit Start Time 12:15 Visit Stop Time 12:42 Total Visit Minutes 27 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[employer]AR Visits 0 Physical Therapy Visit Comments Patient Comments Pt is willing to work with PT Patient Goals Shaun hopes to return to his [place] home with his partner's assistance Therapy Pain Assessment Pain When Pain Assessed During Mobility Pain Present Pain Present Denied Pain M4 PT-IP Mobility and Gait Start: 07/17/19 12:08 Freq: NEEDED Status: Active Protocol: Document 07/17/19 12:56 AW (Rec: 07/17/19 13:16 AW [id number]) PT-Bed Mobility Assessment Rolling Type of Rolling Roll to Left Level of Assist Standby Assistance Supine to Sit Supine to Sit Standby Assistance Sit to Supine Sit to Supine Standby Assistance PT-Transfer Assessment Sit to and From Stand Sit to and from Stand Standby Assistance Equipment Transfer Assistive Device Gait Belt,Front Wheeled Walker Orthotic/Prosthetic Devices or Brace: No Transfers Transfer Destination Bed,Chair Transfer Technique Stand Step Pivot Transfer Ability Level of Assist Standby Assistance Comments Mobility Comments Pt required no more than SBA for all bed mobility and transfers Gait Assessment Gait Gait Assistance Required: Standby Assistance Distance (Feet) 400 Able to Maintain Weight Bearing Status Yes During Gait Assistive Devices Assistive Device Gait Belt,Front Wheeled Walker Orthotic/Prosthetic Devices or Brace: No Gait Deviations General Gait Pattern Decreased Stride Length, Decreased Feet Clearance, Flexed Trunk Factors Limiting Gait Function Factors Limiting Gait Function Decreased Activity Tolerance, Decreased Strength,Poor Balance Comments Gait Comments Pt experienced one minor loss of balance posteriorly from which he was able to recover without assistance. He ambulated 200+200 feet using FWW SBA. Stair Climbing Assessment Evaluation Level of Assist On Stairs Standby Assistance Devices Stair Climbing Assistive Devices Right Railing Technique/Endurance Stair Climbing Direction Ascend and Descend Stair Climbing Technique Step Over Step,Step to Step Number of Steps Climbed 3 Query Text: Stair Climbing Set # Repetitions (reps) 4 Comments Stair Climbing Comments Pt ascended step over step, descended step-to. Pt practiced descent forward x 1 rep and backward x 3 reps to simulate home environment with no need for assistance greater than SBA. PT-Balance Assessment Sitting Balance and Reactions Static Sitting Balance Ability Good Dynamic Sitting Balance Ability Good Standing Balance and Reactions Static Standing Balance Ability Good Dynamic Standing Balance Ability Fair Device Used FW Balance Tests Tandem Standing Pt unable to assume tandem stance without assistance Comments Other Balance Tests/Deviations/Treatment Pt with significant sway with : narrow stance and with eyes closed. 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 M5 PT-IP Objective Assessments Start: 07/17/19 12:08 Freq: NEEDED Status: Active Protocol: Document 07/17/19 12:56 AW (Rec: 07/17/19 13:16 AW [id number]) Orientation Orientation/Cognition Level of Alertness Alert Orientation Name,Date,Place,Situation Language Function Ability No Deficits Noted Safety Awareness Understands Safety Issues Memory Description No Deficits Noted Gross Range of Motion Upper Extremity ROM Assessment Within Functional Limits Lower Extremity ROM Assessment Within Functional Limits Strength Upper Extremity Strength Assessment Left Impaired Shoulder pt currently being treated in outpatient PT Lower Extremity Strength Assessment Within Functional Limits Coordination Assessment Gross Coordination Gross Coordination WNL Sensation Assessment Sensation Gross Sensation Right LE Impaired,Left LE Impaired Light Touch Impaired Comments Sensation Comments Bilateral neuropathy affecting distal lower extremities Muscle Tone Muscle Tone WNL Yes M6 PT-IP Treatment Start: 07/17/19 12:08 Freq: NEEDED Status: Active Protocol: Document 07/17/19 12:56 AW (Rec: 07/17/19 13:16 AW [id number]) Physical Therapy Treatment Equipment Issued Equipment Type and Company [facility] [employer] PT-IP Assessment and Plan Start: 07/17/19 12:08 Freq: NEEDED Status: Active Protocol: Document 07/17/19 12:56 AW (Rec: 07/17/19 13:16 AW [id number]) PT Summary Assessment and Plan Potential Rehabilitation Potential Good Status of Condition at Evaluation Evolving Summary Impairments Balance,Transfers,Gait, Activity Tolerance Assessment Summary Pt is a 68 yo man with history of HTN, DM2, bilateral peripheral neuropathy. He was seen for PT eval having been admitted with weakness and lethargy secondary to hyponatremia and hypomagesemia . Prior to this hospitalization, pt was independent with all functional mobility and ADL's, but did admit to using trekking poles for ambulation a few times recently due to feeling off. On evaluation, pt required no more than SBA for all mobility with FWW. He had one minor posterior loss of balance with ambulation using FWW but was able to recover without therapist assist. Pt agrees with PT assessment that FWW would increase his safety with ambulation. A FWW was issued. Balance was informally assessed: excessive sway noted with eyes closed and narrow stance. Pt unable to assume tandem stance without UE support. He also required UE support and extra time to retrieve an object from the floor. PT recommendation is for discharge to home with partner assist. Pt might also benefit from outpatient PT to improve balance. Frequency of Treatment Frequency Of Treatment Discharge Recommendations To Nursing Amount of Assist Needed Standby Assistance Discharge Recommendations PT Discharge Recommendations Home with Assistance, Outpatient PT Other Discharge Recommendations FWW for home use was ordered and issued
--- NOTE | 2019-07-17 15:23 | PC.NURSE ---
Pt is dressed and ready for discharge home with SYawOYaw Reyes. Discussed d/c meds, time of last dose, reviewed/discussed and gave printouts on hypomagnesemia, hyponatremia, and DEMARIO. Discussed follow up with PCP and setting him up with a local PCP if able. Pt and S.O. deny further questions and Pt was taken out via w/c by CARE REP to POV with S.O. and all belongings.
[2019-07-18 16:13] LABS: Hepatitis A Antibody IgM NONREACTIVE; Hepatitis Acute Panel Interp 0.02; Hepatitis B Core Antibody IgM NONREACTIVE; Hepatitis B Surface Antigen NONREACTIVE; Hepatitis C Antibody NONREACTIVE
[2019-07-19 16:32] LABS: Osmolality, Serum 272 mosm/kg (260-310)
== END 2019-07-17 15:26 | disposition home or self-care (01) | DRG 641 ==
LOC: ED 23:55 → AC 07-16 01:40
PROVIDERS: Internal Medicine; Admitting Provider Nurse Practitioner Family; Emergency Provider Emergency Medicine; Visit Provider Nurse Practitioner Family
DX: E87.1 Hypo-osmolality and hyponatremia (principal); N17.9 Acute kidney failure, unspecified; A04.5 Campylobacter enteritis; E83.42 Hypomagnesemia; F10.20 Alcohol dependence, uncomplicated; I10 Essential (primary) hypertension; E11.42 Type 2 diabetes mellitus with diabetic polyneuropathy; E78.2 Mixed hyperlipidemia
CPT/HCPCS: 36415; 36591; 80048; 80053; 80074; 81001; 82962; 83735; 83930; 84295; 84443; 85025; 86677; 87045; 87177; 87899; 93005; 96361; 96365; 97161; 99284; J1650

== ENCOUNTER → 2019-08-04 12:16 | Outpatient (CLI) | payer MEDICARE, OTHER, SELFPAY ==
[2019-07-16 00:39] VITALS: BMI 28.7
[2019-08-04 13:57] LABS: Blood Urea Nitrogen 15 mg/dL (9-20); Calcium 10.7 mg/dL (8.4-10.2); Carbon Dioxide 25 mmol/L (22-32); Chloride 99 mmol/L (98-107); Cholesterol 219 mg/dL (140-199); Estimated Glomerular Filt Rate > 60.0 mL/min (>60); Glucose 142 mg/dL (80-110); HDL Cholesterol 72 mg/dL (40-60); HEMOLYSIS < 15 (0-50); LDL Cholesterol Calculated 122 mg/dL (<100); Magnesium 1.4 mg/dL (1.6-2.3); Potassium 4.2 mmol/L (3.4-5.1); Sodium 139 mmol/L (137-145); Triglycerides 126 mg/dL (35-150); Uric Acid 7.1 mg/dL (3.5-8.5)
[2019-08-04 14:29] LABS: Prostate Specific Antigen 2.03 ng/mL (0.10-4.00); TSH w/ Reflex to FT4 4.21 uIU/mL (0.47-4.68)
[2019-08-08 09:14] LABS: Testosterone Free 43.1 pg/mL (35.0-155.0); Testosterone Total 430 ng/dL (250-1100)
== END ==
PROVIDERS: PCP Internal Medicine; Visit Provider Internal Medicine
DX: R19.7 Diarrhea, unspecified (principal); M1A.40X0 Other secondary chronic gout, unspecified site, without tophus (tophi); E29.1 Testicular hypofunction; Z12.5 Encounter for screening for malignant neoplasm of prostate; E11.9 Type 2 diabetes mellitus without complications; E03.9 Hypothyroidism, unspecified
CPT/HCPCS: 36415; 80048; 80061; 83735; 84153; 84402; 84403; 84443; 84550; G0103

== ENCOUNTER → 2019-08-25 18:23 | Outpatient (ROUT) | payer MEDICARE, OTHER, SELFPAY ==
[2019-07-16 00:39] VITALS: BMI 28.7
[2019-08-25 18:38] LABS: Blood Urea Nitrogen 6 mg/dL (9-20); Carbon Dioxide 24 mmol/L (22-32); Chloride 97 mmol/L (98-107); Estimated Glomerular Filt Rate > 60.0 mL/min (>60); Glucose 98 mg/dL (80-110); HEMOLYSIS < 15 (0-50); Magnesium 1.5 mg/dL (1.6-2.3); Sodium 134 mmol/L (137-145)
== END ==
PROVIDERS: PCP Internal Medicine; Visit Provider Internal Medicine
DX: E11.9 Type 2 diabetes mellitus without complications (principal); E83.42 Hypomagnesemia
CPT/HCPCS: 80048; 83735

== ENCOUNTER 2019-12-24 12:41 | Day surgery (SDC) | payer MEDICARE, OTHER, SELFPAY ==
[2019-07-16 00:39] VITALS: BMI 28.7
--- NOTE | 2019-12-24 | PATH_ITS ---
[facility] Accession Number: [id number] . 01 Material submitted: . PART A: colon - TRANSVERSE COLON POLYP PART B: colon - SIGMOID COLON POLYP . 02 Diagnosis: A. Transverse Colon, Polyp: Colonic mucosa with prominent benign lymphoid aggregate. Negative for serrated lesion, dysplasia or malignancy. Additional step-sections examined. . B. Sigmoid Colon, Polyp: Hyperplastic polyp. Negative for dysplasia or malignancy. Additional step-sections examined. [facility] 12/26/2019 1428 Local . 02 Electronically signed: . Giancarlo Haas MD, PhD, Pathologist NPI- [id number] . 01 Gross description: . Part A: TRANSVERSE COLON POLYP: Received in formalin is 1 fragment(s) of rodgers, soft tissue measuring 0.3 x 0.3 x 0.2 cm submitted entirely in 1 cassette(s) Part B: SIGMOID COLON POLYP: Received in formalin is 1 fragment(s) of rodgers, soft tissue measuring 0.3 x 0.3 x 0.2 cm submitted entirely in 1 cassette(s) /[facility] [place] 12/24/2019 2140 Local . 02 Pathologist provided ICD-10: K63.5 . 02 CPT . 931239, [id number] Performed at: 01 [facility] [address], [place], [place] [id number] MD Brian Acuna MD Phone: [phone] Performed at: 02 [facility] [address] [place], [place] [id number] MD Colleen Lobo MD Phone: [phone]
--- NOTE | 2019-12-24 12:12 | PM.HP.1 ---
History of Present Illness History of Present Illness Date Patient Seen: 12/24/19 Chief complaint: [id number] SCREENING COLONOSCOPY Narrative: Patient is a 69-year-old male who presented for screening colonoscopy. He was last seen in the office on September 01, 2019. He does have a personal history of colon polyps. Last colonoscopy in 2013 with a cecal adenoma removed in a 5 year recheck was recommended. Patient History Medical History Alcohol dependence (Acute) Superficial spreading malignant melanoma of skin (Chronic) Family & Social History Family History Father History of stroke Diabetes mellitus Mother Heart disease Sister Asthma Social History: household members significant other Tobacco & Substance use: Smoking Status Never smoker alcohol intake current alcohol intake frequency 3 or more drinks per day Substance Use Type does not use Meds Home Medications and Allergies Home Medications Medication Instructions Recorded Confirmed Type Glucose: Home Monitoring Kit kit #1 01/31/17 08/22/18 Rx Glucose: Test Strips str QDAY #100 01/07/18 08/22/18 Rx levothyroxine [Synthroid] 75 mcg PO QDAY #90 tab 01/07/18 07/16/19 Rx Lancets #1 ea 04/03/18 07/16/19 Rx acyclovir 400 mg PO DAILY PRN 07/16/19 07/16/19 History cholecalciferol (vitamin D3) 1,000 unit PO DAILY 07/16/19 07/16/19 History enalapril maleate 10 mg PO BID 07/16/19 07/16/19 History gabapentin 300 mg PO BEDTIME 07/16/19 07/16/19 History bupropion HCl [Wellbutrin XL] 300 mg PO 12/24/19 History Allergies Allergy/AdvReac Type Severity Reaction Status Date / Time No Known Drug Allergies Allergy Verified 12/24/19 13:57 Review of Systems Review of Systems ROS: Yes All systems reviewed with the patient and are negative except as otherwise documented Exam Const General: cooperative, healthy appearing, comfortable and well developed Nutritional Appearance: average body habitus HENMT Head: normocephalic and atraumatic Nose: external nose normal Resp Effort & Inspection: normal respiratory effort and able to speak in complete sentences Auscultation: clear to auscultation bilaterally Cardio Rate: regular rate Rhythm: regular rhythm Heart Sounds: S1 normal and S2 normal GI Palpation: soft, No guarding and No rigid Auscultation: normal bowel sounds Extrem Right lower extremity: no edema Left lower extremity: no edema Assessment & Plan Assessment & Plan narrative: 1. Personal history colon polyps, last colonoscopy 2013 2. Alcohol abuse -Colonoscopy today with anesthesia, further recommendations to
[2019-12-24 13:46] VITALS: BP 137/80; PULSE 87; RESP 24; TEMP 36.2; O2SAT 98
[2019-12-24] MEDS: SODIUM CHLORIDE 0.9% 1,000 ML 70 ML IV (14:00)
--- NOTE | 2019-12-24 14:45 | PM.OP.ENDO ---
Operative Date/Time/Diagnoses Date of procedure: 12/24/19 Time of procedure: 14:31 Procedure Notes Procedure in detail: Surgeon: Martine Jenkins DO Procedure: Colonoscopy with polypectomy Preoperative diagnosis: 1. Personal history non advanced adenomatous colon polyps, last colonoscopy 2013 2. Diverticulosis Postoperative diagnosis: 1. 3 mm sessile polyp in the transverse colon removed with Jumbo forceps 2. 2 mm sessile polyp in the sigmoid colon removed by Jumbo forceps 3. Sigmoid diverticulosis 4. Grade 1 internal hemorrhoids Medications: General anesthesia, see anesthesia note Preanesthesia Assessment An H and P was performed/updated and the Px?s ASA class is 2. The procedure was discussed in detail with the patient. The potential risks and complications including infection, bleeding, missed lesions, perforation, need for surgery in case of perforation, prolonged hospital stay, and were explained. A brief question and answer period was allotted and once all questions were answered, informed consent was obtained. The patient was brought back to the procedure room and placed on standard monitoring. The patient?s vital signs were monitored continuously throughout the entire procedure. Prior to starting, a timeout was performed to confirm the patient?s identity, allergies, medications, and procedure. Procedure in detail The patient was placed in left lateral decubitus position and once adequate sedation was obtained a RUBEN was performed. The digital rectal examination did not reveal any palpable lesions. The tip of the colonoscope was placed in the anal canal and advanced without difficulty all the way to the cecum which was identified by the appendiceal orifice and the ileocecal valve. Terminal ileum appeared. 3 mm polyp in the transverse colon removed with Jumbo forceps. 2 mm polyp in the sigmoid colon removed with Jumbo forceps. Diverticulum scattered throughout the sigmoid colon. Grade 1 internal hemorrhoids noted on retroflexion. Careful examination of all peter of the colon was performed with irrigation of any residual stool. The patient tolerated the procedure well and will be brought back to the recovery area to be discharged once criteria are met. The prep was judged to be good/excellent and adequate to identify polyps less than 5 mm. The withdrawal time was 10min. Complications There were no complications and estimated blood loss was minimal. Recommendations: Resume previous diet Continue outPx medications Follow up pathology results Repeat colonoscopy in 5 years Office follow up prior to repeat colonoscopy in 5 years An emergency contact number was given to the patient for any complications related to the procedure
[2019-12-24 14:53] VITALS: BP 118/67; PULSE 75; RESP 14; TEMP 35.5; O2SAT 94
[2019-12-24 14:58] VITALS: BP 113/64; PULSE 73; RESP 16; TEMP 35.7; O2SAT 97
[2019-12-24 15:03] VITALS: BP 118/72; PULSE 75; RESP 14; TEMP 36.2; O2SAT 98
[2019-12-24 15:08] VITALS: BP 123/68; PULSE 69; RESP 14; TEMP 36; O2SAT 96
[2019-12-24 15:30] VITALS: BP 120/66; PULSE 74; RESP 19; TEMP 36.3; O2SAT 96
== END 2019-12-24 15:48 | disposition home or self-care (01) ==
LOC: ENDO 12:44
PROVIDERS: PCP Internal Medicine; Referring Provider Internal Medicine; Visit Provider Student in an Organized Health Care Education/Training Program
PROC: 0DJD8ZZ Inspection of Lower Intestinal Tract, Via Natural or Artificial Opening Endoscopic (ICD-10-PCS; CPT 45378; principal; 2019-12-24 14:30)
DX: Z12.11 Encounter for screening for malignant neoplasm of colon (principal); Z86.010 Personal history of colon polyps; K57.30 Diverticulosis of large intestine without perforation or abscess without bleeding; K64.0 First degree hemorrhoids; D12.3 Benign neoplasm of transverse colon
CPT/HCPCS: 45380; J2250; J2405; J2704; J3010

== ENCOUNTER → 2021-01-03 13:49 | Outpatient (CLI) | payer MEDICARE, OTHER, SELFPAY ==
[2019-07-16 00:39] VITALS: BMI 28.7
[2021-01-03 15:15] LABS: Alanine Aminotransferase 25 IU/L (<50); Albumin 4.2 g/dL (3.5-5.0); Albumin Globulin Ratio 1.4 (1.0-2.8); Alkaline Phosphatase 72 U/L (38-126); Aspartate Aminotransferase 30 IU/L (17-59); Blood Urea Nitrogen 13 mg/dL (9-20); Calcium 9.8 mg/dL (8.4-10.2); Carbon Dioxide 33 mmol/L (22-32); Chloride 100 mmol/L (98-107); Cholesterol 118 mg/dL (140-199); Estimated Glomerular Filt Rate > 60.0 mL/min (>60); Globulin 3.1 g/dL (1.7-4.1); Glucose 103 mg/dL (80-110); HDL Cholesterol 45 mg/dL (40-60); HEMOLYSIS < 15 (0-50); LDL Cholesterol Calculated 61 mg/dL (<100); Potassium 4.2 mmol/L (3.4-5.1); Sodium 136 mmol/L (137-145); Total Protein 7.3 g/dL (6.3-8.2); Triglycerides 60 mg/dL (35-150)
[2021-01-03 15:47] LABS: Thyroid Stimulating Hormone 0.829 uIU/mL (0.47-4.68)
[2021-01-03 16:21] LABS: Folate > 20.0 ng/mL (2.76-20.0); Vitamin B12 621 pg/mL (239-931)
[2021-01-03 19:32] LABS: Creatinine Urine Random 152.1 mg/dL
[2021-01-03 19:37] LABS: Microalbumi Creatinin Ratio Ur 3.9 ug/mg CR (<30); Microalbumin Urine Random 0.6 mg/dL (0-1.6)
[2021-01-04 07:43] LABS: PSA Free % 16.7 % (.); PSA, Total 0.3 ng/mL (0.0-4.0)
[2021-01-05 14:15] LABS: Albumin 3.9 g/dL (2.9-4.4); Alpha-1-Globulin 0.2 g/dL (0.0-0.4); Alpha-2-Globulin 0.6 g/dL (0.4-1.0); Gamma Globulin 1.3 g/dL (0.4-1.8); Protein, Total 6.9 g/dL (6.0-8.5)
[2021-01-05 14:39] LABS: Hemoglobin A1C% w Est Avg Glu 5.1 % (4.0-6.0)
== END ==
PROVIDERS: PCP Internal Medicine; Referring Provider Internal Medicine; Visit Provider Psychiatry & Neurology Neurology
DX: E78.5 Hyperlipidemia, unspecified (principal); E11.9 Type 2 diabetes mellitus without complications; E03.9 Hypothyroidism, unspecified; G63 Polyneuropathy in diseases classified elsewhere; I10 Essential (primary) hypertension; Z12.5 Encounter for screening for malignant neoplasm of prostate
CPT/HCPCS: 36415; 80053; 80061; 82043; 82570; 82607; 82746; 83036; 84153; 84154; 84155; 84165; 84443; G0103

== ENCOUNTER → 2021-03-17 15:34 | Outpatient (CLI) | payer MEDICARE, OTHER, SELFPAY ==
[2019-07-16 00:39] VITALS: BMI 28.7
[2021-03-17 19:00] LABS: Folate > 20.0 ng/mL (2.76-20.0); Vitamin B12 687 pg/mL (239-931)
[2021-03-21 16:08] LABS: Albumin 3.9 g/dL (2.9-4.4); Alpha-1-Globulin 0.2 g/dL (0.0-0.4); Alpha-2-Globulin 0.6 g/dL (0.4-1.0); Gamma Globulin 1.3 g/dL (0.4-1.8); Globulin Total 3.4 g/dL (2.2-3.9); Protein, Total 7.3 g/dL (6.0-8.5)
== END ==
PROVIDERS: PCP Internal Medicine; Referring Provider Psychiatry & Neurology Neurology; Visit Provider Psychiatry & Neurology Neurology
DX: E11.9 Type 2 diabetes mellitus without complications (principal); G63 Polyneuropathy in diseases classified elsewhere
CPT/HCPCS: 36415; 82607; 82746; 84155; 84165

== ENCOUNTER → 2021-04-29 12:36 | Outpatient (CLI) | payer MEDICARE, OTHER, SELFPAY ==
[2019-07-16 00:39] VITALS: BMI 28.7
--- NOTE | 2021-04-29 12:37 | DI.RAD.S_ITS ---
PROCEDURE: XR HAND LT MIN 3V INDICATIONS: L hand swelling TECHNIQUE: 3 views of the hand(s) acquired. COMPARISON: None. FINDINGS: Bones: No fractures or dislocations. Small ossicles adjacent to the 2nd and 5th MCP joints. Carpal bones are normally aligned. No suspicious bony lesions. Soft tissues: No suspicious soft tissue calcifications. IMPRESSION: No acute fracture or dislocation. Small ossicles adjacent to the 2nd and 5th MCP joint. This could be due to accessory ossicles, sequelae of prior injury, or degenerative change. Dictated by: Josep Ceja M.D. on 04/29/2021 at 12:49 Approved by: Josep Ceja M.D. on 04/29/2021 at 12:52
== END ==
PROVIDERS: PCP Internal Medicine; Referring Provider Physician Assistant; Visit Provider Physician Assistant
DX: M79.89 Other specified soft tissue disorders (principal)
CPT/HCPCS: 73130

== ENCOUNTER → 2021-05-24 08:05 | Outpatient (CLI) | payer MEDICARE, OTHER, SELFPAY ==
[2019-07-16 00:39] VITALS: BMI 28.7
--- NOTE | 2021-05-24 | DI.US.S_ITS ---
PROCEDURE: US ABDOMEN LIMITED INDICATIONS: RUIZ TECHNIQUE: Real-time focused scanning was performed of the abdomen, with image documentation. COMPARISON: [facility], [place], ABDOMEN LIMITED, 01/21/2016, 9:37. [facility], [place], ABDOMEN LIMITED, 05/21/2015, 7:52. FINDINGS: The liver demonstrates normal size. The liver demonstrates generalized mildly increased echogenicity. This decreases ultrasound sensitivity for detection of hepatic masses. The main portal vein demonstrates normal size and demonstrates normal appearing, hepatopetal flow. No findings of gallstones or sludge are seen. The gallbladder wall is not thickened, measuring 3 mm or less. No specific pericholecystic fluid is seen. The sonographic Lowe sign is negative. There is no biliary dilatation, the common bile duct measures 3 mm. The pancreas is overall not well seen. IMPRESSION: Mildly increased liver echogenicity, which is consistent with the given clinical history. Dictated by: Trevor Rodriguez M.D. on 05/24/2021 at 9:58 Approved by: Trevor Rodriguez M.D. on 05/24/2021 at 9:59
== END ==
PROVIDERS: PCP Internal Medicine; Referring Provider Internal Medicine; Visit Provider Internal Medicine
DX: K75.81 Nonalcoholic steatohepatitis (NASH) (principal)
CPT/HCPCS: 76705

== ENCOUNTER → 2023-01-12 10:00 | Outpatient (CLI) | payer MEDICARE, OTHER, SELFPAY ==
[2023-01-12 09:31] VITALS: BMI 28.7
[2023-01-12 10:55] LABS: Add Manual Diff / Slide Review NO; Basophils Absolute Auto 0 /uL (0-100); Basophils Percent Auto 0.4 % (0-2); Eosinophils Absolute Auto 200 /uL (0-450); Eosinophils Percent Auto 3.4 % (2-4); Hematocrit 40.7 % (41-53); Lymphocytes Absolute Auto 2100 /uL (1100-4500); Lymphocytes Percent Auto 31.7 % (25-40); Mean Corpuscular HGB Conc 34.4 % (30-36); Mean Corpuscular Volume 95.9 fL (80-100); Monocytes Absolute Auto 600 /uL (0-900); Monocytes Percent Auto 8.8 % (3-14); Neutrophils Absolute Auto 3600 /uL (1500-7000); Neutrophils Percent Auto 55.7 % (50-75); Platelet Count 143 X10^3/uL (150-400); Red Blood Cell Count 4.24 X10^6/uL (4.5-5.9); Red Cell Distribution Width 13.1 % (11.6-14.8); White Blood Cell Count 6.5 X10^3/uL (4.5-11.0)
[2023-01-12 11:05] LABS: Hemoglobin A1C% w Est Avg Glu 5.3 % (4.0-6.0)
[2023-01-12 11:24] LABS: Alanine Aminotransferase 43 IU/L (<50); Albumin 4.3 g/dL (3.5-5.0); Albumin Globulin Ratio 1.3 (1.0-2.8); Alkaline Phosphatase 76 U/L (38-126); Aspartate Aminotransferase 45 IU/L (17-59); BUN Creatinine Ratio 21.5 (6-22); Bilirubin Total 0.7 mg/dL (0.2-1.3); Blood Urea Nitrogen 14 mg/dL (9-20); Calcium 9.2 mg/dL (8.4-10.2); Carbon Dioxide 31 mmol/L (22-32); Chloride 101 mmol/L (98-107); Cholesterol 133 mg/dL (140-199); Estimated Glomerular Filt Rate > 60 mL/min (>60); Globulin 3.3 g/dL (1.7-4.1); Glucose 114 mg/dL (80-110); HDL Cholesterol 48 mg/dL (40-60); HEMOLYSIS < 15 (0-50); LDL Cholesterol Calculated 67 mg/dL (<100); Potassium 4.1 mmol/L (3.4-5.1); Sodium 140 mmol/L (137-145); Total Protein 7.6 g/dL (6.3-8.2); Triglycerides 89 mg/dL (35-150)
[2023-01-12 11:54] LABS: TSH w/ Reflex to FT4 0.48 uIU/mL (0.47-4.68)
[2023-01-12 12:11] LABS: Vitamin B12 455 pg/mL (239-931)
[2023-01-12 16:22] LABS: Creatinine Urine Random 209.9 mg/dL
[2023-01-12 16:28] LABS: Microalbumi Creatinin Ratio Ur 2.8 ug/mg CR (<30); Microalbumin Urine Random 0.6 mg/dL (0-1.6)
== END ==
PROVIDERS: PCP Family Medicine; Referring Provider Family Medicine; Visit Provider Family Medicine
DX: E03.9 Hypothyroidism, unspecified (principal); E11.9 Type 2 diabetes mellitus without complications; E78.2 Mixed hyperlipidemia; F10.10 Alcohol abuse, uncomplicated; F32.9 Major depressive disorder, single episode, unspecified; G56.93 Unspecified mononeuropathy of bilateral upper limbs; G62.1 Alcoholic polyneuropathy; I10 Essential (primary) hypertension; R74.8 Abnormal levels of other serum enzymes
CPT/HCPCS: 36415; 80053; 80061; 82043; 82570; 82607; 83036; 84443; 85025

== ENCOUNTER → 2024-01-04 10:06 | Outpatient (CLI) | payer MEDICARE, OTHER, SELFPAY ==
[2023-02-19 11:25] VITALS: BMI 28.7
[2024-01-04 11:42] LABS: Add Manual Diff / Slide Review NO; Basophils Absolute Auto 0 /uL (0-100); Basophils Percent Auto 0.2 % (0-2); Eosinophils Absolute Auto 200 /uL (0-450); Eosinophils Percent Auto 2.6 % (2-4); Hematocrit 42.8 % (41-53); Lymphocytes Absolute Auto 2000 /uL (1100-4500); Lymphocytes Percent Auto 26.9 % (25-40); Mean Corpuscular Hemoglobin 33.8 PG (26-34); Mean Corpuscular Volume 96.6 fL (80-100); Monocytes Absolute Auto 600 /uL (0-900); Monocytes Percent Auto 7.6 % (3-14); Neutrophils Absolute Auto 4600 /uL (1500-7000); Neutrophils Percent Auto 62.7 % (50-75); Platelet Count 150 X10^3/uL (150-400); Red Blood Cell Count 4.44 X10^6/uL (4.5-5.9); Red Cell Distribution Width 13.4 % (11.6-14.8); White Blood Cell Count 7.3 X10^3/uL (4.5-11.0)
[2024-01-04 11:46] LABS: Hemoglobin A1C% w Est Avg Glu 5.1 % (4.0-6.0)
[2024-01-04 12:04] LABS: Alanine Aminotransferase 49 IU/L (<50); Albumin 4.2 g/dL (3.5-5.0); Albumin Globulin Ratio 1.4 (1.0-2.8); Alkaline Phosphatase 58 U/L (38-126); Aspartate Aminotransferase 36 IU/L (17-59); BUN Creatinine Ratio 18.3 (6-22); Bilirubin Total 0.9 mg/dL (0.2-1.3); Blood Urea Nitrogen 13 mg/dL (9-20); Calcium 9.8 mg/dL (8.4-10.2); Carbon Dioxide 33 mmol/L (22-32); Chloride 99 mmol/L (98-107); Cholesterol 132 mg/dL (140-199); Estimated Glomerular Filt Rate > 60 mL/min (>60); Globulin 3.1 g/dL (1.7-4.1); Glucose 122 mg/dL (80-110); HDL Cholesterol 50 mg/dL (40-60); HEMOLYSIS < 15 (0-50); LDL Cholesterol Calculated 62 mg/dL (<100); Potassium 4.4 mmol/L (3.4-5.1); Sodium 141 mmol/L (137-145); Total Protein 7.3 g/dL (6.3-8.2); Triglycerides 99 mg/dL (35-150)
== END ==
PROVIDERS: PCP Family Medicine; Referring Provider Family Medicine; Visit Provider Family Medicine
DX: E11.9 Type 2 diabetes mellitus without complications (principal)
CPT/HCPCS: 36415; 80053; 80061; 83036; 85025

== ENCOUNTER → 2024-02-08 11:18 | Outpatient (CLI) | payer MEDICARE, OTHER, SELFPAY ==
[2023-02-19 11:25] VITALS: BMI 28.7
[2024-02-11 21:09] LABS: Fecal Immunochemical Test Negative (Negative)
== END ==
PROVIDERS: PCP Family Medicine; Referring Provider Family Medicine; Visit Provider Family Medicine
DX: Z12.11 Encounter for screening for malignant neoplasm of colon (principal)
CPT/HCPCS: 82274

== ENCOUNTER 2024-09-23 09:10 | Day surgery (SDC) | payer MEDICARE, OTHER, SELFPAY ==
[2024-09-18 09:11] VITALS: BMI 28.7
[2024-09-23 10:06] VITALS: BP 160/79; PULSE 63; RESP 18; TEMP 36.1; O2SAT 99
--- NOTE | 2024-09-23 10:47 | SUR.OPER ---
EGD 282
--- NOTE | 2024-09-23 10:48 | PM.PREOP ---
Pre-operative Note Interval Note History & Physical reviewed/Exam performed by Physician: Yes Changes to H&P: No
--- NOTE | 2024-09-23 11:19 | PM.OP.EGD ---
Operative Date/Time/Diagnoses Date of procedure: 09/23/24 Time of procedure: 11:19 Pre-op diagnosis: Esophageal dysphagia Post-op diagnosis: other (Esophageal stricture) Procedure & Clinicians Study performed: Esophagogastroduodenoscopy with dilation of stricture Same procedure as scheduled: Yes Indications: 74-year-old man with dysphagia here for diagnostic upper endoscopy Surgeon: Spencer Luo Procedure Notes Procedure in detail: The history and physical was performed/updated and the patient is ASA class is 2. The procedure was discussed in detail with the patient. Potential risks complications including infection, bleeding, missed diagnosis, perforation, need for surgery, and were explained. Their questions were answered and informed consent was obtained. Patient placed in left lateral decubitus position. Time out was performed. Procedural sedation was administered by Anesthesia. A bite block was placed. the scope was inserted into the mouth and advanced through the esophagus and into the stomach. The pylorus was intubated and the duodenum was examined to the 2nd portion. The scope was then withdrawn into the stomach and was retroflexed. The stomach was decompressed and scope was withdrawn slowly through the esophagus. FINDINGS Stricture in the distal esophagus. Narrow but scope passes without difficulty into the stomach. Stricture was gradually dilated using the balloon dilator to a maximum of 20 mm under direct visualization. The patient tolerated the procedure well and will be discharged when they meet criteria. Specimen(s): none sent Impression: Esophageal stricture Post-procedure Recommendations: Reflux diet Plan for aftercare: Omeprazole 20 mg x 1 month Disposition: same day surgery
[2024-09-23 11:20] VITALS: BP 149/64; PULSE 66; RESP 12; TEMP 36.8; O2SAT 94
[2024-09-23 11:25] VITALS: BP 130/75; BP 144/64; PULSE 62; PULSE 65; RESP 14; RESP 16; TEMP 36.7; O2SAT 96; O2SAT 98
[2024-09-23 11:30] VITALS: BP 138/79; PULSE 62; RESP 18; TEMP 36.7; O2SAT 96
--- NOTE | 2024-09-23 12:09 | SUR.PHASEII ---
1140 patient ambulated to the bathroom independently. Abdomen distended, firm. Reported 2/10 abdominal pain. After the bathroom patient reported passing flatus and that pain improved.
== END 2024-09-23 12:04 | disposition home or self-care (01) ==
PROVIDERS: PCP Family Medicine; Referring Provider Surgery; Visit Provider Surgery
PROC: 0DJ08ZZ Inspection of Upper Intestinal Tract, Via Natural or Artificial Opening Endoscopic (ICD-10-PCS; CPT 43235; principal; 2024-09-23 10:30)
DX: K22.2 Esophageal obstruction (principal)
CPT/HCPCS: 43249; J2704

== ENCOUNTER → 2024-10-03 09:30 | Outpatient (CLI) | payer MEDICARE, OTHER, SELFPAY ==
[2024-09-18 09:11] VITALS: BMI 28.7
[2024-10-03 10:21] LABS: Add Manual Diff / Slide Review NO; Basophils Absolute Auto 0 /uL (0-100); Basophils Percent Auto 0.2 % (0-2); Eosinophils Absolute Auto 200 /uL (0-450); Eosinophils Percent Auto 2.9 % (2-4); Hematocrit 41.6 % (41-53); Hemoglobin 13.9 g/dL (13.5-17.5); Lymphocytes Absolute Auto 1900 /uL (1100-4500); Lymphocytes Percent Auto 28.9 % (25-40); Mean Corpuscular HGB Conc 33.5 % (30-36); Mean Corpuscular Hemoglobin 33.1 PG (26-34); Mean Corpuscular Volume 98.9 fL (80-100); Monocytes Absolute Auto 500 /uL (0-900); Monocytes Percent Auto 7.4 % (3-14); Neutrophils Absolute Auto 4000 /uL (1500-7000); Neutrophils Percent Auto 60.6 % (50-75); Platelet Count 129 X10^3/uL (150-400); Red Cell Distribution Width 13.2 % (11.6-14.8); White Blood Cell Count 6.6 X10^3/uL (4.5-11.0)
[2024-10-03 10:34] LABS: Hemoglobin A1C% w Est Avg Glu 5.5 % (4.0-6.0)
[2024-10-03 10:47] LABS: Alanine Aminotransferase 34 IU/L (<50); Albumin 4.1 g/dL (3.5-5.0); Albumin Globulin Ratio 1.5 (1.0-2.8); Alkaline Phosphatase 76 U/L (38-126); Aspartate Aminotransferase 37 IU/L (17-59); BUN Creatinine Ratio 20.3 (6-22); Bilirubin Total 0.9 mg/dL (0.2-1.3); Blood Urea Nitrogen 16 mg/dL (9-20); Calcium 9.7 mg/dL (8.4-10.2); Carbon Dioxide 28 mmol/L (22-32); Chloride 106 mmol/L (98-107); Estimated Glomerular Filt Rate > 60 mL/min (>60); Globulin 2.8 g/dL (1.7-4.1); Glucose 122 mg/dL (80-110); HEMOLYSIS < 15 (0-50); Lipase 80 U/L (23-300); Potassium 4.4 mmol/L (3.4-5.1); Sodium 140 mmol/L (137-145); Total Protein 6.9 g/dL (6.3-8.2)
[2024-10-03 11:11] LABS: Prostate Specific Antigen 0.754 ng/mL (0.10-4.00)
== END ==
PROVIDERS: PCP Family Medicine; Referring Provider Family Medicine; Visit Provider Family Medicine
DX: F10.20 Alcohol dependence, uncomplicated (principal); E11.9 Type 2 diabetes mellitus without complications; R13.10 Dysphagia, unspecified; Z80.42 Family history of malignant neoplasm of prostate; G89.29 Other chronic pain; M54.50 Low back pain, unspecified; M25.561 Pain in right knee
CPT/HCPCS: 36415; 80053; 83036; 83690; 84153; 85025

== ENCOUNTER → 2025-01-27 11:34 | Outpatient (CLI) | payer MEDICARE, OTHER, SELFPAY ==
[2024-09-18 09:11] VITALS: BMI 28.7
[2025-01-27 12:44] LABS: BUN Creatinine Ratio 23.4 (6-22); Blood Urea Nitrogen 18 mg/dL (9-20); Calcium 9.9 mg/dL (8.4-10.2); Carbon Dioxide 26 mmol/L (22-32); Chloride 108 mmol/L (98-107); Cholesterol 119 mg/dL (140-199); Estimated Glomerular Filt Rate > 60 mL/min (>60); Glucose 79 mg/dL (80-110); HDL Cholesterol 33 mg/dL (40-60); HEMOLYSIS < 15 (0-50); LDL Cholesterol Calculated 50 mg/dL (<100); Potassium 3.8 mmol/L (3.4-5.1); Sodium 142 mmol/L (137-145); Triglycerides 182 mg/dL (35-150)
== END ==
LOC: LAB 11:36
PROVIDERS: PCP Family Medicine; Referring Provider Family Medicine; Visit Provider Family Medicine
DX: Z00.00 Encounter for general adult medical examination without abnormal findings (principal); E11.9 Type 2 diabetes mellitus without complications; F10.20 Alcohol dependence, uncomplicated; E03.9 Hypothyroidism, unspecified; G62.1 Alcoholic polyneuropathy; R19.5 Other fecal abnormalities; M25.561 Pain in right knee; M25.562 Pain in left knee
CPT/HCPCS: 36415; 80048; 80061; 83036; 84439; 84443

== ENCOUNTER 2025-01-31 16:33 | Emergency (ER) | payer MEDICARE, OTHER, SELFPAY ==
[2024-09-18 09:11] VITALS: BMI 28.7
[2025-01-31 16:55] VITALS: BP 142/72; PULSE 87; RESP 16; TEMP 36.9; O2SAT 97; BMI 29.7
[2025-01-31] MEDS: PROPARACAINE 0.5% OPHTH SOL 1 DROPS EYE-BOTH (20:15)
[2025-01-31] MEDS: FLUORESCEIN 1 MG STRIP EYE-BOTH (20:16)
--- NOTE | 2025-01-31 20:25 | ED_ITS ---
HPI - Eye Problem General Chief complaint: Eye Problems Stated complaint: sent by [facility], bloody eye Time Seen by Provider: 01/31/25 19:37 Source: patient Mode of arrival: Wheelchair History of Present Illness HPI Narrative: 74-year-old male diabetes, hypertension, gout, hypothyroidism, dyslipidemia presents with complaint of his right having blood in the white portion. Patient states he noted he was using a band saw yesterday until about 5:00 p.m. he did have regular glasses on did not appreciate any foreign bodies or injuries went to bed that evening woke up this morning with spot of bruising at about the 2 o'clock position which he states has moved down and across the eye since. States possibly little bit of blurriness but states vision is pretty much normal. Denies any pain, states it has maybe a little irritated. Denies any difficulty with movement. No headaches, no nausea or vomiting. He does note he would prior cataract surgery and had a fold to his high-risk/people that is at his normal him in his states that has not any different. Patient follows with Ophthalmology with ramez ELKINS in [place]. States he did have cataract surgery about a year ago. States right eye 20/40 left eye about 20/70 is cons istent with visual acuities we obtained today. He does wear glasses. Patient states no anticoagulants no aspirin or Plavix. Denies any other trauma or injuries. Has not had similar issues in the past. Does use preservative-free eyedrops 4 times daily on the recommendation of his dental appliance repairer. Related Data Home Medications Medication Instructions Recorded Confirmed coenzyme P10-[id number] E 100 mg-100 2 cap PO DAILY 01/12/23 01/27/25 unit capsule colchicine 0.6 mg capsule 0.6 mg PO BID 01/12/23 01/27/25 indomethacin 50 mg capsule 50 mg PO TID 01/12/23 01/27/25 metoprolol succinate 25 mg 25 mg PO DAILY 12/12/24 01/27/25 tablet,extended release 24 hr cholecalciferol (vitamin D3) 25 5,000 unit PO DAILY 01/27/25 01/27/25 mcg (1,000 unit) capsule Previous Rx's Medication Instructions Recorded Glucose: Home Monitoring Kit kit ##1 01/31/17 blood sugar diagnostic (Accu-Chek #100 ea 02/27/23 Guide test strips) blood sugar diagnostic (OneTouch #100 ea 05/23/23 Ultra Test strips) lancets 31 gauge #100 ea 05/23/23 acyclovir 400 mg tablet 400 mg PO 3XD PRN herpe #21 tabs 01/02/24 atorvastatin 10 mg tablet 10 mg PO DAILY #90 tabs 01/14/24 duloxetine 60 mg capsule,delayed 60 mg PO DAILY for depressive 01/14/24 release disorder #90 caps levothyroxine 75 mcg tablet 75 mcg PO QDAY #90 tabs 01/14/24 (Synthroid) naltrexone 50 mg tablet 100 mg (2 x 50 mg) PO DAILY #180 01/14/24 tabs topiramate 25 mg tablet (Topamax) See Rx Instructions PO .COMPLEX 05/30/24 #120 tabs thiamine HCl (vitamin B1) 100 mg 100 mg PO DAILY #90 tabs 08/25/24 tablet mirtazapine 30 mg tablet 30 mg PO BEDTIME MDD #90 tabs 09/02/24 gabapentin 300 mg capsule 600 mg (2 x 300 mg) PO BEDTIME 11/07/24 #180 caps enalapril maleate 20 mg tablet 20 mg PO DAILY hypertension #90 01/16/25 tabs allopurinol 300 mg tablet 300 mg PO DAILY #90 tabs 01/26/25 sildenafil 100 mg tablet (Viagra) 100 mg PO DAILY PRN sexual 01/27/25 activity #30 tabs Allergies Allergy/AdvReac Type Severity Reaction Status Date / Time No Known Drug Allergies Allergy Verified 01/31/25 17:05 Review of Systems Review of Systems ROS Unobtainable: All systems reviewed & are unremarkable except as noted in HPI and below Patient History Medical History Erectile dysfunction Alcohol use disorder, moderate, dependence AVE on CPAP Tremor Encounter for subsequent annual wellness visit (AWV) in Medicare patient Herpes genitalia Major depression, single episode Alcohol dependence Acute kidney injury Hypomagnesemia Acute hyponatremia Superficial spreading malignant melanoma of skin Gastritis and duodenitis Family History Father History of stroke Diabetes mellitus Mother Heart disease Sister Asthma Social History marital status: unmarried,living together household members: significant other and none lives independently: Yes occupational status: previously employed Smoking Status: Never smoker alcohol intake: current substance use type: does not use Smoking Status: Never smoker alcohol intake frequency: 3 or more drinks per day Exam Narrative Exam Narrative: GENERAL: Alert and oriented x three, mild distress HEENT: Head normocephalic, atraumatic, EOMI, pupils reactive, face symmetric, moist mucous membranes Visual acuity: right 20/40, left 20/70 without correction. IOP: Right 18 mm Hg, Left 16 mm Hg General: no globe trauma Eyelids: normal inspection, eyelids everted for exam on right. Conjunctiva/Sclera: normal inspection on the left, on the right patient has subconjunctival hemorrhage tracking from the right eye from about 11:00 a.m. to 3:00 a.m, slightly raised but does not cross over to the cornea. Corneas: normal inspection, examined with fluroscein on right shows no uptake, no FB. EOM: intact, no palsy/entrapment Pupils: PERRL, normal accomadation, pupil normal Anterior Chambers: normal inspection, no hypema Posterior: normal fundoscopic on right but nondilated exam. NECK: Supple, full range of motion CARDIOVASCULAR: Regular rate and rhythm without murmurs, rubs or gallops. RESPIRATORY: Breath sounds equal bilaterally, no wheezes rales or rhonchi. EXTREMITIES: Normal range of motion. NEUROLOGICAL: Cranial nerves II through XII grossly intact. Moving all extremities SKIN: Warm, dry, no petechiae, no rashes or lesions, no ecchymosis. Initial Vital Signs Initial Vital Signs: Vital Signs Temperature 98.5 F 01/31/25 16:55 Pulse Rate 87 01/31/25 16:55 Respiratory Rate 16 01/31/25 16:55 Blood Pressure 142/72 H 01/31/25 16:55 Pulse Oximetry 97 01/31/25 16:55 Oxygen Delivery Method Room Air 01/31/25 16:55 Course Orders Ordered: Discontinued Medications Fluorescein Sodium (Fluorescein 1 Mg Strip) 1 mg EYE-BOTH NOW ONE Stop: 01/31/25 19:38 Last Admin: 01/31/25 20:16 Dose: 1 mg Documented By: [facility] Proparacaine HCl (Proparacaine 0.5% Ophth Lorin) 1 drops EYE-BOTH NOW ONE Stop: 01/31/25 19:38 Last Admin: 01/31/25 20:15 Dose: 1 drop Documented By: Semaj Vital Signs Vital signs: Vital Signs - 8 hr 01/31/25 20:59 Temperature 98.1 F Pulse Rate 63 Respiratory Rate 14 Blood Pressure 158/80 H Pulse Oximetry 97 Oxygen Delivery Method Room Air MDM - Eye Problem MDM Narrative Medical decision making narrative: Visual acuity in the right is 20/40, left 20/70 Patient's pressures are appropriate, appears to have a subconjunctival hemorrhage likely had something strike his eye from when he was using his saw yesterday did have glasses on but states they were regular glasses. No obvious abrasion, ulcerations patient's visual acuity is actually better on the right than the left and he notes his acuities are consistent with his known priors. He does have a fold of the iris/people region which he in his state is his baseline and has been known for some time by his dental appliance repairer related to a prior cataract surgery. Patient does not appear to be have any blood within the cornea itself or hyphema. Asked patient to follow up with Ophthalmology. Discussed return precautions if things are rapidly changing. Discharge Plan Departure Patient Disposition: Home Clinical Impression: Subconjunctival hemorrhage of right eye Instructions: DI for Subconjunctival Hemorrhage Activity Restrictions/Additional Instructions: Follow up with your dental appliance repairer, call Sunday to set up an appointment. You can use cold compresses 4 times daily for 5-10 minutes. You may continue to use your regular eyedrops. If you develop new eye pain, sudden changes to her vision, decrease or loss of vision, nausea vomiting, severe headaches, any rash or skin changes or other new or concerning changes return to the emergency department for re-evaluation Prescriptions: No Action thiamine HCl (vitamin B1) 100 mg tablet 100 mg PO DAILY Qty: 90 3RF Glucose: Home Monitoring Kit Qty: 1 0RF (DME) OneTouch Ultra Test Strip See Rx Instructions .Route Qty: 100 0RF Rx Instructions: As directed, to test level once daily (DME) lancets 31 gauge misc See Rx Instructions .Route Qty: 100 0RF Rx Instructions: As directed, to test level once daily acyclovir 400 mg tablet 400 mg PO 3XD PRN (Reason: herpe) Qty: 21 7RF mirtazapine 30 mg tablet 30 mg PO BEDTIME Qty: 90 1RF gabapentin 300 mg capsule 600 mg PO BEDTIME Qty: 180 3RF metoprolol succinate 25 mg tablet extended release 24 hr 25 mg PO DAILY enalapril maleate 20 mg tablet 20 mg PO DAILY Qty: 90 3RF allopurinol 300 mg tablet 300 mg PO DAILY Qty: 90 3RF coenzyme [id number] E 100-100 mg-unit capsule 2 cap PO DAILY colchicine 0.6 mg capsule 0.6 mg PO BID indomethacin 50 mg capsule 50 mg PO TID Rx Instructions: administer with food or milk (DME) Accu-Chek Guide test strips Strip See Rx Instructions .Route Qty: 100 3RF Rx Instructions: As directed, once daily as needed atorvastatin 10 mg tablet 10 mg PO DAILY Qty: 90 3RF duloxetine 60 mg capsule,delayed release(DR/EC) 60 mg PO DAILY Qty: 90 3RF levothyroxine [Synthroid] 75 mcg tablet 75 mcg PO QDAY Qty: 90 3RF naltrexone 50 mg tablet 100 mg PO DAILY Qty: 180 3RF topiramate [Topamax] 25 mg tablet See Rx Instructions PO .COMPLEX Qty: 120 11RF Rx Instructions: 25 mg bid. thru neurology sildenafil [Viagra] 100 mg tablet 100 mg PO DAILY PRN (Reason: sexual activity) Qty: 30 5RF Rx Instructions: administer 30 minutes to 4 hours before activity cholecalciferol (vitamin D3) 25 mcg (1,000 unit) capsule 5,000 unit PO DAILY Referrals: Olivier Love DO [Primary Care Provider] - Stand Alone Forms: Patient Portal/API/Survey
[2025-01-31 20:59] VITALS: BP 158/80; PULSE 63; RESP 14; TEMP 36.7; O2SAT 97
== END 2025-01-31 20:59 | disposition home or self-care (01) ==
PROVIDERS: Emergency Provider Emergency Medicine; PCP Family Medicine
DX: H11.31 Conjunctival hemorrhage, right eye (principal)
CPT/HCPCS: 99282

== ENCOUNTER → 2025-07-28 12:25 | Outpatient (CLI) | payer MEDICARE, OTHER, SELFPAY ==
[2024-09-18 09:11] VITALS: BMI 28.7
[2025-07-28 13:03] LABS: Appearance Urine UA CLEAR; Bilirubin Urine UA NEGATIVE (NEGATIVE); Color Urine UA YELLOW; Glucose Urine UA NEGATIVE (Negative); Ketones Urine UA NEGATIVE (NEGATIVE); Leukocyte Esterase Urine UA NEGATIVE (NEGATIVE); Nitrite Urine UA NEGATIVE (Negative); Occult Blood Urine UA NEGATIVE (Negative); Protein Urine UA NEGATIVE (Negative); Specific Gravity Urine UA <=1.005 (1.000-1.035); Urobilinogen Urine UA 0.2 E.U./dL (0.2); pH Urine UA 7.5 (4.5-8.0)
[2025-07-28 13:17] LABS: Culture Indicated Urine Cult Not Indicated
[2025-07-28 13:31] LABS: Hemoglobin A1C% w Est Avg Glu 5.7 % (4.0-6.0)
[2025-07-28 13:42] LABS: Alanine Aminotransferase 36 IU/L (<50); Albumin 4.5 g/dL (3.5-5.0); Albumin Globulin Ratio 1.5 (1.0-2.8); Alkaline Phosphatase 78 U/L (38-126); Blood Urea Nitrogen 15 mg/dL (9-20); Calcium 10.1 mg/dL (8.4-10.2); Carbon Dioxide 27 mmol/L (22-32); Chloride 105 mmol/L (98-107); Estimated Glomerular Filt Rate > 60 mL/min (>60); Globulin 3.1 g/dL (1.7-4.1); Glucose 99 mg/dL (70-99); HEMOLYSIS < 15 (0-50); Potassium 4.2 mmol/L (3.4-5.1); Sodium 141 mmol/L (137-145); Total Protein 7.6 g/dL (6.3-8.2)
[2025-07-28 14:11] LABS: TSH w/ Reflex to FT4 3.06 uIU/mL (0.47-4.68)
== END ==
PROVIDERS: PCP Family Medicine; Referring Provider Family Medicine; Visit Provider Family Medicine
DX: E11.9 Type 2 diabetes mellitus without complications (principal); F10.20 Alcohol dependence, uncomplicated; E03.9 Hypothyroidism, unspecified; R10.9 Unspecified abdominal pain
CPT/HCPCS: 36415; 80053; 81001; 83036; 84443